=== PATIENT | male | born 1950 | race Caucasian/White ===

== ENCOUNTER → 2020-03-29 11:11 | Outpatient (CLI) | payer MEDICARE, SELFPAY ==
--- NOTE | ~2020-03-29 | XR_ITS ---
EXAMINATION: XR hip RT min 2V DATE: 03/29/2020 12:07 INDICATION: Right hip pain TECHNIQUE: Two views of right hip were obtained. COMPARISON: None. FINDINGS: Bone alignment is normal. There is no fracture. There are partially imaged surgical changes of the lumbosacral spine. IMPRESSION: 1. No acute osseous abnormality. Reviewed, dictated and finalized at location A.
== END ==
PROVIDERS: PCP Family Medicine; Visit Provider Family Medicine
DX: M25.551 Pain in right hip (principal)
CPT/HCPCS: 73502

== ENCOUNTER 2020-07-03 12:00 | Inpatient (IN) | payer MEDICARE, SELFPAY ==
[2020-07-03] VITALS (36 sets, daily range): BP systolic 114–153; BP diastolic 63–75; PULSE 62–100; RESP 14–31; TEMP 36.3–37.2; O2SAT 70–97; BMI 25.4
--- NOTE | ~2020-07-03 | CT_ITS ---
EXAMINATION: CTA chest PE protocol EXAM DATE: 07/03/2020 14:45 INDICATION: Shortness of air. TECHNIQUE: Spiral CTA of the chest (pulmonary arteries) was performed with 100 cc Omnipaque 350 intr avenous contrast injection. Images were acquired during the pulmonary arterial phase. Coronal maxi mum intensity projection 3D-reconstructions were created by the technologist on dedicated workstation . Axial, coronal and sagittal reformatted images were reviewed. The dose-length product (DLP) for t his examination was 363.41 mGy-cm. The exposure was tailored according to patient size (auto mA exp osure control), and iterative reconstruction (ASIR) was used as additional dose reduction technique. Correlation is made to pulmonary CT 2005. FINDINGS: Scattered bilateral interlobar and segmental pulmonary emboli, moderate clot burden. No t horacic aortic dissection. There is moderate to severe amount of peripheral predominant groundglass airspace disease with some smaller regions of atelectasis, appearance consistent with COVID pneumonia . There are no pleural or pericardial effusions. Tracheobronchial tree is patent. There is no me diastinal, hilar or axillary lymphadenopathy. There is no pneumothorax. Heart normal in size. T here is moderate coronary arterial calcification, arterial sclerosis. Upper abdomen is unremarkable. There is thoracic spondylosis without osteoblastic or osteolytic lesions identified. IMPRESSION: 1. Multiple interlobar and segmental pulmonary emboli bilaterally, moderate clot burden. Evidence of mild right heart strain. 2. Moderate to severe COVID pneumonia. I discussed pulmonary emboli, COVID pneumonia with Dr. Holden Landis MD at 07/03/2020 15:01 HAM PASSER . Reviewed, dictated and finalized at location A. PASSER IMPRESSION: 1. Multiple interlobar and segmental pulmonary emboli bilaterally, moderate cl ot burden. Evidence of mild right heart strain. 2. Moderate to severe COVID pneumonia. I discussed pulmonary emboli, COVID pneumonia with Dr. Holden Landis MD at 07/03/2020 15:01 HAM PASSER.
--- NOTE | ~2020-07-03 | US_ITS ---
EXAMINATION: US venous doppler [facility] DATE: 07/04/2020 09:22 INDICATION: Pulmonary embolism TECHNIQUE: Grayscale ultrasound images without and with compression and Doppler ultrasound images of the bilateral lower extremity veins were obtained. COMPARISON: None. FINDINGS: The visualized portions of right common femoral vein, profunda (deep) femoral vein, femoral vein, pop liteal vein, posterior tibial veins, peroneal veins, gastrocnemius vein and greater saphenous vein ou tflow are patent. The visualized portions of left common femoral vein, profunda femoral vein, femoral vein, popliteal v ein, posterior tibial veins, peroneal veins, gastrocnemius vein and greater saphenous vein outflow ar e patent. IMPRESSION: 1. No deep venous thrombosis in either lower limb. Reviewed, dictated and finalized at location A. [employer]
--- NOTE | ~2020-07-03 | XR_ITS ---
XR chest 1V portable DATE: 07/10/2020 21:11 INDICATION: Respiratory failure TECHNIQUE: Portable AP chest on 07/10/2020 2109 hours COMPARISON: 07/07/2020 portable AP chest 07/03/2020 CT pulmonary scan 07/03/2020 portable AP chest 02/21/2016 2 view chest FINDINGS: Diffuse bilateral pulmonary infiltrates relatively sparing the apices are again noted, with little interval change since 07/07/2020. Heart size appears within normal range. Is aortic atherosclerotic calcification. No pleural effusion. No pneumothorax. Status post anterior lower cervical spine surgical fusion. Diffuse osteopenia. IMPRESSION: No significant change since 07/07/2020 Reviewed, dictated and finalized at location A. TH PROGRAM MANAGER
--- NOTE | ~2020-07-03 | XR_ITS ---
EXAMINATION: XR chest ET placement, XR abdomen NG/feed tube insert DATE: 07/12/2020 16:26 INDICATION: Endotracheal tube placement. Orogastric tube placement. TECHNIQUE: 1. AP view of the chest was obtained. 2. AP upright view of the upper abdomen was obtained. COMPARISON: Chest radiograph dated 07/10/[address] dated 07/03/2020 FINDINGS: Chest: Endotracheal tube tip 5.0 cm above the jumana. Left upper extremity peripherally inserted central kenn ous catheter (PICC) tip at the superior cavoatrial junction. Suture line at the right apex suggesting prior partial pulmonary wedge resection. Couple surgical cli ps project over the right midlung zone. Diffuse groundglass opacities and increased reticular pattern throughout both lungs with appearance on prior CT suggesting COVID pneumonia. No pleural effusion or pneumothorax. Cardiomediastinal silhouette is normal. Plate and screw fixation for anterior spinal f usion at C6-C7. Abdomen: Nasogastric tube tip in proximal side port in the body of the stomach. No dilated loops of gas-filled bowel in the visualized upper abdomen. Partially visualized vertical mani and pedicle screws and inte rbody bone graft cages for combined is submitted anterior and posterior spinal fusion beginning at L2 and extending caudally beyond the inferior margin of the [id number]. IMPRESSION: 1. Endotracheal tube, orogastric tube and left PICC line all in expected positions. 2. Diffuse bilateral lung disease with appearance on CT most suspicious for COVID pneumonia. Differen tial includes pulmonary edema. Reviewed, dictated and finalized at location B. ER JOINER IMPRESSION: 1. Endotracheal tube, orogastric tube and left PICC line all in expected positi ons. 2. Diffuse bilateral lung disease with appearance on CT most suspicious for COV ID pneumonia. Differential includes pulmonary edema.
--- NOTE | ~2020-07-03 | XR_ITS ---
EXAMINATION: XR abdomen/kub 1V INDICATION: Abdominal distention TECHNIQUE: Supine views of the abdomen were obtained on 2 radiographs. COMPARISON: None FINDINGS: There are no dilated loops of bowel. No free intraperitoneal gas is identified. There are c hanges of lumbar fusion with fracture of the stabilization rods on the right at L3-4 and on the left at L4-5. Opacities of the visualized lung bases are consistent with COVID 19 pneumonia. IMPRESSION: 1. Normal bowel gas pattern. 2. Spinal fusion hardware failure. Reviewed, dictated and finalized at location A. LE POINTED OPERATOR
--- NOTE | ~2020-07-03 | XR_ITS ---
EXAMINATION: XR chest 1V portable EXAM DATE: 07/14/2020 06:29 INDICATION: Acute respiratory failure, COVID-19 pneumonia. TECHNIQUE: Portable AP frontal chest x-ray was obtained. Comparison is made to prior examination from 07/13, 07/12. FINDINGS: Endotracheal tube tip is 6 centimeters above the jumana. Feeding tube tip identified, like ly tip projecting over gastric bubble. There is a left-sided PICC line with tip projecting over the c avoatrial junction. Skin folds overlying the lung apices likely accounting for the density difference. There is moderate amount of ill-defined bilateral airspace disease, appears to have peripheral predominant. There are no sizable pleural effusions. There is no pneumothorax suspected. Mild cardiomegaly. Cervical fu andrew hardware. There is aortic arteriosclerosis. There are bony degenerative changes. There is no significant interval change compared to prior exam. IMPRESSION: 1. Line and tube(s) in position. 2. Moderate amount of bilateral airspace disease, distribution consistent with COVID pneumonia. Reviewed, dictated and finalized at location A. AP WORKER
--- NOTE | ~2020-07-03 | XR_ITS ---
EXAMINATION: XR chest 1V portable EXAM DATE: 07/13/2020 06:26 INDICATION: Acute respiratory failure, COVID-19 pneumonia. TECHNIQUE: Portable AP frontal chest x-ray was obtained. Comparison is made to prior examination from 07/10/2020. FINDINGS: Endotracheal tube tip is 5-6 centimeters above the jumana. Feeding tube tip identified, [place] in the gastric body. There is a left-sided PICC line with tip projecting over the cavoatrial carlos ction. There is moderate amount of ill-defined bilateral airspace disease, appears to have peripheral predom inant. There are no sizable pleural effusions. There is no pneumothorax suspected. Mild cardiome fan. Cervical fusion hardware. There is aortic arteriosclerosis. There are bony degenerative booker es. There is no significant interval change compared to prior exam. IMPRESSION: 1. Line and tube(s) in position. 2. Moderate amount of bilateral airspace disease, distribution consistent with COVID pneumonia. Reviewed, dictated and finalized at location A. NCIAL MANAGER
--- NOTE | ~2020-07-03 | XR_ITS ---
EXAMINATION: XR chest 1V portable DATE: 07/15/2020 08:01 INDICATION: Acute respiratory failure. COVID 19 pneumonia. TECHNIQUE: frontal view of the chest was obtained. COMPARISON: Chest radiograph dated 07/14/2020 FINDINGS: Endotracheal tube tip 7.3 cm above the jumana. Nasogastric tube tip in the stomach. Bilateral coarse reticular and patchy groundglass opacities with peripheral and lower lung predominan ce. There is been some improvement in aeration at the lung bases. No pleural effusion or pneumothorax . The cardiomediastinal silhouette is normal. Plate and screw fixation for lower cervical anterior sp inal fusion. IMPRESSION: 1. Diffuse bilateral lung disease consistent with provided history of COPD pneumonia with improved ae ration at the lung bases. 2. Endotracheal tube tip 7.3 cm above the jumana. Consider advancement by 4-5 cm. Reviewed, dictated and finalized at location A. M TURBINE ASSEMBLER IMPRESSION: 1. Diffuse bilateral lung disease consistent with provided history of COPD pneu monia with improved aeration at the lung bases. 2. Endotracheal tube tip 7.3 cm above the jumana. Consider advancement by 4-5 c m.
--- NOTE | ~2020-07-03 | XR_ITS ---
EXAMINATION: XR chest 1V portable DATE: 07/07/2020 14:17 INDICATION: COVID-19 pneumonia. TECHNIQUE: A single frontal view of the chest was obtained. COMPARISON: Chest single view 07/03/2020, chest CT 07/03/2020 FINDINGS: There are patchy airspace opacities associated with interstitial opacities involving all yanet ng zones bilaterally with a peripheral predominance and relative sparing of the lung apices. No pleur al effusion or pneumothorax. The heart size is normal. There are changes of anterior fusion procedure in cervical spine. Surgical clips overlie right chest. IMPRESSION: 1. Stable diffuse lung disease, consistent with COVID-19 pneumonia. Reviewed, dictated and finalized at location B. GER UROLOGY
--- NOTE | ~2020-07-03 | XR_ITS ---
EXAMINATION: XR chest 1V portable DATE: 07/16/2020 06:15 INDICATION: COVID 19 pneumonia. Acute respiratory failure. TECHNIQUE: frontal view of the chest was obtained. COMPARISON: Chest radiograph dated 07/15/2020 FINDINGS: Endotracheal tube tip 6.6 cm above the jumana. Nasogastric tube extends below the left hemidiaphragm with distal tip collimated off the study. No interval change in bilateral coarse reticular and patchy airspace opacities. No pneumothorax or pl eural effusion. The cardiomediastinal silhouette is normal. Partially visualized plate and screw fixa tion for lower cervical anterior spinal fusion. IMPRESSION: 1. No significant change in diffuse bilateral lung disease consistent which could represent COVID pne umonia, ARDS, pulmonary edema or some combination thereof. 2. Endotracheal tube tip 6.5 cm above the jumana. Consider advancement by 4 cm. Reviewed, dictated and finalized at location A. SOLDERING MACHINE TENDER IMPRESSION: 1. No significant change in diffuse bilateral lung disease consistent which cou ld represent COVID pneumonia, ARDS, pulmonary edema or some combination thereof . 2. Endotracheal tube tip 6.5 cm above the jumana. Consider advancement by 4 cm.
--- NOTE | ~2020-07-03 | XR_ITS ---
EXAMINATION: XR chest 1V portable DATE: 07/03/2020 13:03 INDICATION: Shortness of breath. TECHNIQUE: A single frontal view of the chest was obtained. COMPARISON: Chest 2 views 02/21/2016, chest CT 03/17/2007 FINDINGS: There are airspace opacities in all lung zones with a peripheral process. No pleural effusi on or pneumothorax. There is normal. There are changes of anterior fusion procedure in cervical spine . Surgical clips overlie right chest. IMPRESSION: 1. Diffuse lung disease, consistent with pneumonia. Reviewed, dictated and finalized at location B. [facility]
--- NOTE | 2020-07-03 12:18 | ECG_ITS ---
Measurements Intervals [place] Rate: 79 P: 43 HI: 133 QRS: 37 QRSD: 102 T: 9 QT: 391 QTc: 449 Interpretive Statements SINUS RHYTHM EARLY PRECORDIAL R/S TRANSITION BORDERLINE ST-T WAVE ABNORMALITY- ANTEROLAT/INF LEADS BORDERLINE ECG Electronically Signed On 07-03-2020 12:51:12 FILTER WASHER AND PRESSER by Derick Porras D.O.
--- NOTE | 2020-07-03 12:35 | PC.NURSE ---
patient resting on stretcher. MD aware of initial O2 sats. now on high flow O2 at 9LNC. sats slowly up to 94%. patient reminded to take deep breaths thru his nose. on photonics technician. 2nd SL inserted and labs drawn. attempting to get HPI information from patient but patient is a poor historian. provider in room.
[2020-07-03 12:37] LABS: Basophils Percent Auto 0.2 % (0.2-1.2); Eosinophils Percent Auto 0.2 % (0-4.4); Hematocrit 43.4 % (42.0-52.0); Hemoglobin 14.3 g/dL (14.0-18.0); Immature Granulocyte Absolute 0.36 K/mm3 (0.00-0.031); Immature Granulocyte Percent A 2.7 % (0-0.5); Lymphocytes Absolute Auto 1.13 K/mm3 (0.9-3.2); Lymphocytes Percent Auto 8.5 % (18.3-44.2); Mean Corpuscular HGB Conc 32.9 g/dl (32-36); Mean Corpuscular Hemoglobin 28.9 pg (26-34); Mean Corpuscular Volume 87.7 fl (80-100); Mean Platelet Volume 10.6 fl (7.4-10.4); Monocytes Absolute Auto 0.8 K/mm3 (0.1-0.6); Monocytes Percent Auto 6.1 % (2.6-8.5); Neutrophils Percent Auto 82.3 % (45.5-73.1); Nucleated Red Blood Cells Perc 0.1 % (0.0-0.2); Platelet Count Result 240 k/mm3 (150-375); Red Blood Count 4.95 M/mm3 (4.6-6.20); White Blood Count 13.4 K/mm3 (4.5-10.0)
[2020-07-03 12:50] LABS: Base Excess ABG -0.8 mEq/l (+/-2.0); Carboxyhemoglobin 0.9 % THb (0-2.0); Fractional Inspired Oxygen 56 %; HCO3 ABG 22.4 mEq/l (22.0-26.0); Methemoglobin ABG 0.2 %THb (0-1.5); Oxygen Saturation ABG 91.8 % (95.0-100.0); Oxyhemoglobin 88.8 % THb (90.0-100.0); PO2 ABG 58.7 mmHg (80.0-100.0); PO2 FiO2 Ratio Arterial Blood 1.05 %; Reduced Hemoglobin 10.1 %THb (0-5.0); Total Hemoglobin 14.4 g/dL (12.0-18.0); pH ABG 7.449 (7.350-7.450)
[2020-07-03 12:52] LABS: Site Drawn LEFT BRACHIAL
[2020-07-03 12:52] LABS: Alanine Aminotransferase 27 U/L (4-50); Albumin Level 3.9 g/dL (3.5-5.1); Alkaline Phosphatase 84 U/L (38-126); Anion Gap 10 mmol/L (8-16); Aspartate Amino Transferase 30 U/L (17-59); Bilirubin,Total 1.6 mg/dL (0.2-1.3); Blood Urea Nitrogen 27 mg/dL (9-20); Calcium 9.1 mg/dL (8.4-10.2); Carbon Dioxide 28 mmol/L (22-30); Chloride 100 mmol/L (98-107); Estimated CRCL calculation 87 ml/min; Estimated Glomerular Filt Rate > 60; Glucose 304 mg/dL (75-110); Potassium 4.2 mmol/L (3.4-5.0); Sodium 138 mmol/L (137-145)
[2020-07-03 12:53] LABS: Device HIGH FLOW NASAL CANN
[2020-07-03 13:04] LABS: CRP 20.7 mg/dL (<1.0)
[2020-07-03 13:32] LABS: D Dimer > 20.00 ug/mL (<0.48)
--- NOTE | 2020-07-03 13:43 | ED.SOB ---
HPI - SOB/Dyspnea General Chief Complaint: Shortness of Breath/Dyspnea Stated Complaint: COVID +, SOB Time Seen by Provider: 07/03/20 12:04 History of Present Illness HPI Narrative: Patient is a 69-year-old male who presents ER with shortness of breath. Recently diagnosed with COVID-19 but patient is unsure of the date he was diagnosed. It may have been on the but it may have also been 17 days ago. Reports his is also positive. Reports he has had persistent shortness of breath that is worse with exertion. He is also been having mild fevers and chills as well as cough. Unsure how a contracted illness. He is oriented x3 but is a poor historian regarding the details of his illness. Related Data Home Medications Medication Instructions Recorded Confirmed cholecalciferol (vitamin D3) 125 125 mcg PO DAILY 03/29/20 mcg (5,000 unit) capsule mecobalamin (vitamin B12) 1,000 1,000 mcg PO DAILY 03/29/20 mcg chewable tablet tamsulosin 0.4 mg capsule 0.4 mg PO DAILY 03/29/20 aspirin 81 mg DAILY 07/03/20 atorvastatin 20 mg DAILY 07/03/20 cholecalciferol (vitamin D3) 07/03/20 cyanocobalamin (vitamin B-12) mcg 07/03/20 dapagliflozin [Farxiga] 10 mg DAILY 07/03/20 07/03/20 latanoprost drp 07/03/20 lisinopril 5 mg DAILY 07/03/20 07/03/20 metformin 1,000 mg BID 07/03/20 methylprednisolone mg 07/03/20 sertraline 100 mg DAILY 07/03/20 Allergies Allergy/AdvReac Type Severity Reaction Status Date / Time atorvastatin Allergy Unknown Muscle Pain Verified 07/03/20 13:14 ezetimibe Allergy Unknown Muscle Pain Verified 07/03/20 13:14 Review of Systems Review of Systems: All systems reviewed & are unremarkable except as noted in HPI and below Constitutional: Constitutional: Reports chills, Reports fever(s) and Reports weakness ENT: Denies nasal congestion and Denies sore throat Cardiovascular: Cardiovascular: Denies chest pain and Denies radiating jaw, neck or arm pain Respiratory: Respiratory: Reports cough, Reports dyspnea and Denies wheezing Gastrointestinal: Gastrointestinal: Denies abdominal pain, Denies nausea and Denies vomiting Neurologic: Denies focal weakness and Denies numbness PMFSH Past Medical History Medical History (Updated 07/03/20 @ 15:35 by Holden Landis MD) BPH loc w urin obs/LUTS Chronic low back pain Coronary artery disease involving [place] coronary artery of [place] heart History of [place] (myocardial infarction) HLD (hyperlipidemia) Hypertensive heart disease without congestive heart failure Primary open angle glaucoma of both eyes PVD (peripheral vascular disease) Type 2 diabetes mellitus without complications Surgical History Surgical History (Updated 03/29/20 @ 10:57 by Bucky Hua MD) History of PTCA S/P lumbar fusion Family History Family History (System 10/20/19 @ 08:47 by Tania Greenfield) Mother Family history of lung cancer Family history of coronary artery disease, Onset Age: 65 Hypertension Patient's mother is Grandparent Diabetes mellitus Sibling Family history of malignant neoplasm Patient's sister is Patient's sister is in good health Patient's brother is in good health Father Patient's father is Social History Social History (Updated 03/29/20 @ 10:36 by Swati Glass) Smoking packs per day: 2 Smoking cigarettes per day: 40.0 Years smoked: 25 Smoking pack-years: 50.00 Smoking status: Former smoker Tobacco type: cigarettes Second hand tobacco smoke exposure: Yes Smoking end date: 06/16/87 Alcohol intake: current Substance use: never Substance use type: does not use Gender identity (if verbalized by the patient): Male Exam Narrative: Exam Narrative: GENERAL: Well-appearing, well-nourished, and in no acute distress. HEAD: Normocephalic, atraumatic. EYES: PERRL and EOMI. CHEST: Clear to auscultation. No respiratory distress. HEART: Regular ra
--- NOTE | 2020-07-03 13:50 | PC.NURSE ---
spoke with patient's who states he was (+) for Covid on 06/19/20. patient also resting in bed now with O2 sat in the 70's. this RN to his room. patient has oxygen off, mask off, took leads off. turned on his side all covered up to sleep. all reapplied to patient. patient advised again to leave O2 on and leave monitors aware.
--- NOTE | 2020-07-03 14:30 | PC.NURSE ---
resting on stretcher. continues to be on 9L via high-flow NC O2. patient removes O2 at times. RA sat 68%. have to remind patient of O2 and monitors. call light in reach.
[2020-07-03] MEDS: HEPARIN SODIUM 5,000 UNITS/ML VIAL 7000 UNITS IV PUSH (15:14)
[2020-07-03] MEDS: HEPARIN SOD/D5W 100 UNITS/ML 25,000 UNITS/250 ML BAG 15 UNITS IV CONT (15:16)
--- NOTE | 2020-07-03 15:21 | PC.NURSE ---
resting on stretcher. heparin bolus given.heparin gtt started. waiting for bed assignment upstairs. patient updated. urinal at bedside. has ice water. has call light in reach.
[2020-07-03] MEDS: DEXAMETHASONE SOD PHOS INJ 4 MG/ML VIAL 6 MG IV PUSH (15:55)
--- NOTE | 2020-07-03 16:05 | PC.NURSE ---
decadron given as ordered. patient asked for diet pepsi. returned to room to find patient out of bed at end of stretcher with increased dyspnea. has pulse oximeter off. asked patient several times if he wanted help to use urinal but denied. patient assisted back to bed. monitors back on. drink given. side rails up x 2. call light in reach. patient advised again not to get out of bed alone.
--- NOTE | 2020-07-03 16:23 | PC.NURSE ---
patient continues to intermittently remove his O2 and monitors. placed on scalp pulse oximeter. discussed with provider. patient has long recovery time if O2 has been removed. will try NRB. patient appears confused at time and not understanding the significance of his diagnosis and current condition.
--- NOTE | 2020-07-03 16:35 | PC.NURSE ---
spoke with patient's Jennyfer on the phone. updated on patient's diagnosis and plan to admit.
--- NOTE | 2020-07-03 16:51 | PC.NURSE ---
respiratory in room. patient placed on bipap. waiting for bed assignment upstairs for transfer.
--- NOTE | 2020-07-03 17:07 | PC.NURSE ---
SBAR completed. faxed and tubed to IMU.
--- NOTE | 2020-07-03 17:08 | PC.NURSE ---
per respiratory, patient ok to go to IMU on NRB mask.
--- NOTE | 2020-07-03 17:35 | PC.NURSE ---
report given to RN in IMU. will get patient ready to transfer to [facility].
--- NOTE | 2020-07-03 17:44 | PC.NURSE ---
Cat RN taken patient to 209 on NRB per respiratory.
--- NOTE | 2020-07-03 19:58 | ADMGEN ---
This patient, Russell Green, was admitted to IMU Room 209-01. Patient/family oriented to hospital policies and general routines including ID bracelet, bed and alarms, visiting hours, pain management, procedures, bathroom and other care routines, personal items, smoking policy, room service/diet, and visiting hours. Information on how to activate the Rapid Response Team has been discussed. Patient/Family are encouraged to report perceived risks to care and to ask questions if they do not understand what they are told or what they should do.
[2020-07-03 20:45] LABS: Alveolar/Arterial O2 Gradient 383.8 mmHg; Base Excess ABG 0.3 mEq/l (+/-2.0); Carboxyhemoglobin 0.3 % THb (0-2.0); Fractional Inspired Oxygen 70 %; HCO3 ABG 23.9 mEq/l (22.0-26.0); Methemoglobin ABG 0.3 %THb (0-1.5); Oxygen Content ABG 18.9 %vol (16.0-22.0); Oxygen Saturation ABG 95.9 % (95.0-100.0); Oxyhemoglobin 93.9 % THb (90.0-100.0); PCO2 ABG 35.9 mmHg (35.0-45.0); PO2 ABG 76.7 mmHg (80.0-100.0); Reduced Hemoglobin 5.5 %THb (0-5.0); Total Hemoglobin 14.3 g/dL (12.0-18.0); pH ABG 7.442 (7.350-7.450)
[2020-07-03 20:46] LABS: Device NON-INVASIVE VENT; Modified Allen's Test Pass; Non-Invasive Vent Rate 4 /MIN; Site Drawn LEFT RADIAL
[2020-07-03 20:48] LABS: Non-Invasive Expiratory Pressure 6 CMH2O; Non-Invasive Inspiratory Pressure 14 CMH2O
--- NOTE | 2020-07-03 22:22 | PM.IMHP ---
H&P: HPI History of Present Illness Date/Time: 07/03/20 22:22 Chief Complaint: Shortness of breath and anxiety Narrative: Russell Green is a 69 year old male has been tested positive for COVID-19. The patient was unsure of the date initially. However the patient stated he thought it was about 17 days ago or so. However other family members are now out of quarantine. The patient has persistent shortness of breath and is worth with exertion. The patient was confused when he came in. The patient is a very poor historian regarding any details of his care. He was able to tell me about his social history though. He is able to give me the date of and wary is in that he had 2 children and a . Chest CT a was read as multiple interlobular and segmental pulmonary emboli bilaterally. Moderate clot burden. Evidence of mild right heart strain. Moderate to severe is COVID pneumonia. The patient was started on a heparin drip. The patient was restless and pulling off his oxygen initially. I suggested a BiPAP machine he still in a BiPAP and appears to be tolerating it fairly well. Chest x-ray was read as diffuse lung disease consistent with pneumonia. He appears to be outside the window for treatment. But he was given because we were sure the window or time frame of his positive test. Was done an outside facility. The patient was placed on isolation. Neutrophils 82.3. D-dimer was greater than 20. Patient's initial ABGs 7.449 was pH and then was 7.442. CO2 was 33 and then 35. PO2 was 58.7 than 76.7. C reactive protein 20.7. Patient is being admitted to inpatient services on the date of service of 07/03/2020. Review of Systems Review of Systems: All systems reviewed & are unremarkable except as noted in HPI and below Constitutional: Constitutional: Reports as per HPI and Reports no additional constitutional complaints Eyes: Eyes: Reports as per HPI and Reports no additional eye complaints ENT: Reports system reviewed and no additional complaints, except as documented and Reports Normal hearing present Cardiovascular: Cardiovascular: Reports no additional cardiovascular complaints Respiratory: Respiratory: Reports no additional respiratory complaints and Reports no additional respiratory complaints Gastrointestinal: Gastrointestinal: Reports as per HPI and Reports no additional gastrointestinal complaints Musculoskeletal: Musculoskeletal: Reports no additional musculoskeletal complaints Integumentary/Breasts: Skin/Breast: Reports system reviewed and no additional complaints, except as docu and Reports as per HPI Neurologic: Reports system reviewed and no additional complaints, except as documented, Reports as per HPI and Reports Normal hearing present Psychiatric: Psychiatric: Reports no additional psychiatric complaints and Reports as per HPI Endocrine: Endocrine: Reports no additional endocrine complaints Hematologic/Lymphatic: Hematologic/Lymphatic: Reports no additional hematologic/lymphatic complaints Allergic/Immunologic: Allergic/Immunologic: Reports no additional allergic/immunologic complaints [facility] Past Medical History Medical History (Updated 07/03/20 @ 22:52 by Brianne Santos NP) Anxiety BPH (benign prostatic hyperplasia) BPH loc w urin obs/LUTS Chronic low back pain Congestive heart failure Diastolic Coronary artery disease involving [place] coronary artery of [place] heart Glaucoma History of [place] (myocardial infarction) HLD (hyperlipidemia) Hypertensive heart disease without congestive heart failure Primary open angle glaucoma of both eyes PVD (peripheral vascular disease) Type 2 diabetes mellitus without complications Surgical History Surgical History (Updated 07/03/20 @ 22:30 by Brianne Santos NP) H/O heart artery stent X7 History of carpal tunnel release History of lung surgery History of PTCA History of shoulder surgery Arthroscopic S/P lumbar fusion Family History Family History (
[2020-07-03 23:23] LABS: Hemoglobin A1C 7.5 % (<5.7)
[2020-07-03 23:47] LABS: Glucose Point of Care 310 (65-105)
[2020-07-04] VITALS (24 sets, daily range): BP systolic 115–118; BP diastolic 61–67; PULSE 54–77; RESP 16–32; TEMP 36.2–36.6; O2SAT 89–100
--- NOTE | 2020-07-04 | ECHO_ITS ---
Patient Info Name: Russell Green Age: 69 years : 1950 Gender: Male Ht: 74 in Wt: 197 lbs BSA: 2.17 m2 HR: 67 bpm BP: 118 / 61 mmHg Technical Quality: Good, Fair Exam Date: 07/04/2020 9:56 AM Exam Location: [facility] Pulmonary Patient Status: Inpatient Admit Date: 07/03/2020 Staff Ordering Physician: Brianne Santos NP Food Sales Clerk: Lai Castro RDCS, RT Attending Provider: Lydia Calix PA-C Referring Physician: Tom CLIFTON; Exam Type: CA echo doppler color flow Study Info Indications I26.99 - Other pulmonary embolism without acute cor pulmonale Complete two-dimensional, color flow and Doppler transthoracic echocardiogram is performed. Summary 1. Complete two-dimensional, color flow and Doppler transthoracic echocardiogram is performed. 2. Left ventricular chamber dimension is normal. 3. Left ventricular systolic function is normal, estimated at 60-65%. 4. There is mildly increased left ventricular wall thickness. 5. The left ventricular diastolic function is grade I diastolic dysfunction. 6. E/e' 6 is not elevated. 7. There is mild aortic valve regurgitation. 8. There is trace pulmonic regurgitation. Left Ventricle E/e' 6 is not elevated. Left ventricular chamber dimension is normal. Left ventricular systolic function is normal, estimated at 60-65%. There is mildly increased left ventricular wall thickness. The left ventricular diastolic function is grade I diastolic dysfunction. Right Ventricle Right ventricular systolic function is normal based on TAPSE 2.7 cm. Right ventricular chamber dimension is not well visualized. Left Atria Left atrial chamber dimension is normal. Right Atria Right atrial chamber dimension is normal. Aortic Valve The aortic valve is trileaflet. There is no aortic valve stenosis. There is mild aortic valve regurgitation. Pulmonic Valve There is trace pulmonic regurgitation. Mitral Valve There is no mitral valve stenosis. There is no mitral valve regurgitation. Tricuspid Valve There is no tricuspid valve regurgitation. Pericardium/Pleural There is no pericardial effusion. Inferior Vena Cava Normal inferior vena cava with >50% collapse upon inspiration consistent with normal right atrial pressure, 5 mmHg. Aorta The aortic root size at the sinus of Valsalva is normal. Left Ventricular Outflow Tract Name Value Normal LVOT 2D LVOT Diameter 2.0 cm LVOT Doppler LVOT Peak Gradient 3 mmHg LVOT Mean Gradient 2 mmHg LVOT VTI 18 cm LVOT VTI/AV VTI Ratio 0.8 LVOT Stroke Volume 57 ml LVOT CO 4.1 l/min LVOT CI 1.9 l/min/m2 Mitral Valve Name Value Normal MV Doppler MV D
[2020-07-04 00:35] LABS: Partial Thromboplastin Time 32.6 SECONDS (22.3-36.8)
[2020-07-04] MEDS: HEPARIN SODIUM 5,000 UNITS/ML VIAL 7000 UNITS IV PUSH (01:42)
[2020-07-04] MEDS: INSULIN ASPART (*BKC) 100 UNITS/ML SUB-Q ×5 (01:43→23:45)
[2020-07-04 01:45] LABS: Glucose Point of Care 303 (65-105)
[2020-07-04] MEDS: ALBUTEROL SULFATE NEB 2.5 MG/0.5 ML INH 5 MG INHALATION ×4 (02:00→19:35)
[2020-07-04 05:07] LABS: Basophils Percent Auto 0.3 % (0.2-1.2); Hematocrit 41.2 % (42.0-52.0); Hemoglobin 13.6 g/dL (14.0-18.0); Immature Granulocyte Percent A 2.9 % (0-0.5); Lymphocytes Absolute Auto 0.65 K/mm3 (0.9-3.2); Lymphocytes Percent Auto 6.3 % (18.3-44.2); Mean Corpuscular Hemoglobin 28.8 pg (26-34); Mean Corpuscular Volume 87.3 fl (80-100); Mean Platelet Volume 11.4 fl (7.4-10.4); Monocytes Absolute Auto 0.7 K/mm3 (0.1-0.6); Monocytes Percent Auto 7.1 % (2.6-8.5); Neutrophils Absolute Auto 8.5 K/mm3 (1.3-6.7); Neutrophils Percent Auto 83.4 % (45.5-73.1); Platelet Count Result 230 k/mm3 (150-375); Red Blood Count 4.72 M/mm3 (4.6-6.20); Red Cell Distribution Width 13.9 % (11.5-14.5); White Blood Count 10.2 K/mm3 (4.5-10.0)
[2020-07-04 05:23] LABS: Alanine Aminotransferase 26 U/L (4-50); Albumin Level 3.5 g/dL (3.5-5.1); Alkaline Phosphatase 83 U/L (38-126); Anion Gap 10 mmol/L (8-16); Aspartate Amino Transferase 24 U/L (17-59); Blood Urea Nitrogen 27 mg/dL (9-20); Calcium 9.2 mg/dL (8.4-10.2); Carbon Dioxide 27 mmol/L (22-30); Chloride 103 mmol/L (98-107); Estimated CRCL calculation 76 ml/min; Estimated Glomerular Filt Rate > 60; Glucose 334 mg/dL (75-110); Magnesium 2.3 mg/dL (1.6-2.3); Potassium 4.2 mmol/L (3.4-5.0); Sodium 140 mmol/L (137-145)
[2020-07-04 05:36] LABS: CRP 20.3 mg/dL (<1.0)
[2020-07-04 05:44] LABS: Partial Thromboplastin Time > 200.0 SECONDS (22.3-36.8)
[2020-07-04 06:19] LABS: Thyroid Stimulating Hormone Reflex 0.748 uIU/mL (0.465-4.68)
[2020-07-04] MEDS: lisinopriL 5 MG TABLET BY MOUTH (07:47)
[2020-07-04] MEDS: ATORVASTATIN 20 MG TABLET BY MOUTH (07:47)
[2020-07-04] MEDS: CYANOCOBALAMIN 1,000 MCG TABLET 1000 MCG PO (07:47)
[2020-07-04] MEDS: SERTRALINE HCL 50 MG TABLET 100 MG BY MOUTH (07:47)
[2020-07-04] MEDS: TAMSULOSIN HCL 0.4 MG CAPSULE PO (07:47)
[2020-07-04] MEDS: LATANOPROST 0.005% OP SOLN 2.5 ML BTL 1 DROP EACH EYE (07:48)
--- NOTE | 2020-07-04 07:59 | PHAR ---
Home medication identified by markings with nurse on IMU unit. Farxiga 10mg tablet
[2020-07-04] MEDS: DEXAMETHASONE SOD PHOS INJ 4 MG/ML VIAL 6 MG IV PUSH (11:37)
[2020-07-04 14:51] LABS: Partial Thromboplastin Time 85.8 SECONDS (22.3-36.8)
[2020-07-04 16:14] LABS: Glucose Point of Care 249 (65-105)
[2020-07-04] MEDS: HEPARIN SOD/D5W 100 UNITS/ML 25,000 UNITS/250 ML BAG 16 UNITS IV CONT (16:53)
--- NOTE | 2020-07-04 17:40 | PM.IMPN ---
Progress Note: A&P Assessment and Plan (1) Pneumonia due to COVID-19 virus: Code(s): U07.1 - COVID-19; J12.82 - Pneumonia due to coronavirus disease 2019 Status: Acute Assessment and Plan: Patient presented after being found to be COVID positive at home. He had worsening shortness of breath and fatigue and decided to come for further evaluation. He has been placed on Decadron and was on BiPAP overnight due to hypoxia. He is out of the window for Remdesivir. This morning he was able to be taken off BiPAP and placed on high-flow nasal cannula where he is right now. Continue monitoring. (2) Pulmonary embolism: Code(s): I26.99 - Other pulmonary embolism without acute cor pulmonale Status: Acute Assessment and Plan: Post COVID. Venous Dopplers negative for DVT. Echo is pending. Continue with heparin protocol. Plan for Eliquis p.o. (3) Congestive heart failure: Code(s): I50.9 - Heart failure, unspecified Status: Chronic Assessment and Plan: Diastolic dysfunction. It looks like the patient is just on lisinopril. No Lasix. Appears to be euvolemic at this time. (4) HLD (hyperlipidemia): Code(s): E78.5 - Hyperlipidemia, unspecified Status: Acute Assessment and Plan: Will hold statin at this time. (5) Type 2 diabetes mellitus without complications: Code(s): E11.9 - Type 2 diabetes mellitus without complications Status: Acute Assessment and Plan: Accu-Cheks AC and HS. I am holding his metformin. A1c pending. His farxiga is non formulary. He will be on Decadron at this time. We need them do Accu-Cheks AC and HS. (6) Hypertensive heart disease without congestive heart failure: Code(s): I11.9 - Hypertensive heart disease without heart failure Status: Acute Assessment and Plan: Denies any chest pain. Continue with lisinopril. (7) Anxiety: Code(s): F41.9 - Anxiety disorder, unspecified Status: Chronic Assessment and Plan: Continue with sertraline (8) BPH (benign prostatic hyperplasia): Code(s): N40.0 - Benign prostatic hyperplasia without lower urinary tract symptoms Status: Chronic Assessment and Plan: Continue with Flomax (9) Glaucoma: Code(s): H40.9 - Unspecified glaucoma Status: Chronic Assessment and Plan: Continue with his eyedrops. Time Spent With Patient Time with patient: 25 - 35 minutes Subjective Date/time seen: 07/04/20 17:40 Interval history: Date of service 07/04/2020: Patient states he is feeling well at this time. He still has some shortness of breath, especially with exertion. He denies much cough. Denies any fevers, chills, chest pain, nausea, vomiting, abdominal pain, leg swelling, calf pain, headache or any other symptoms at this time. Review of Systems Review of Systems: All systems reviewed & are unremarkable except as noted in HPI and below Exam Narrative: Exam Narrative: General: 69-year-old man laying flat in bed with head elevated at 30 degrees. Appears fatigued otherwise comfortable, resting comfortably on High Flow NC. In no acute distress. Skin: No jaundice or cyanosis. Good skin turgor. Neck: Full range of motion. Supple. Respiratory: Lungs are clear to auscultation bilaterally. No bony chest wall tenderness. Cardiovascular: The heart has a regular rate and rhythm without murmur. Lower extremities: No lower extremity edema. Distal pulses are easily palpated. No calf tenderness
[2020-07-04 18:23] LABS: Glucose Point of Care 349 (65-105)
[2020-07-04] MEDS: SODIUM CHLORIDE NASAL GEL 14.1 GM 1 APPLIC NASAL (20:26)
[2020-07-04 20:54] LABS: Partial Thromboplastin Time 79.2 SECONDS (22.3-36.8)
[2020-07-05] VITALS (28 sets, daily range): BP systolic 111–130; BP diastolic 52–79; PULSE 49–83; RESP 18–31; TEMP 36.2–36.6; O2SAT 91–100
[2020-07-05 00:09] LABS: Glucose Point of Care 309 (65-105)
[2020-07-05] MEDS: ALBUTEROL SULFATE NEB 2.5 MG/0.5 ML INH 5 MG INHALATION ×4 (02:00→16:50)
[2020-07-05] MEDS: INSULIN ASPART (*BKC) 100 UNITS/ML SUB-Q ×3 (05:38→17:56)
[2020-07-05 05:47] LABS: Basophils Percent Auto 0.2 % (0.2-1.2); Eosinophils Percent Auto 0.1 % (0-4.4); Hematocrit 42.6 % (42.0-52.0); Hemoglobin 14.2 g/dL (14.0-18.0); Immature Granulocyte Absolute 0.29 K/mm3 (0.00-0.031); Immature Granulocyte Percent A 2.1 % (0-0.5); Lymphocytes Absolute Auto 1.18 K/mm3 (0.9-3.2); Lymphocytes Percent Auto 8.7 % (18.3-44.2); Mean Corpuscular HGB Conc 33.3 g/dl (32-36); Mean Corpuscular Hemoglobin 29.2 pg (26-34); Mean Corpuscular Volume 87.7 fl (80-100); Mean Platelet Volume 11.6 fl (7.4-10.4); Monocytes Absolute Auto 0.9 K/mm3 (0.1-0.6); Monocytes Percent Auto 6.4 % (2.6-8.5); Neutrophils Absolute Auto 11.2 K/mm3 (1.3-6.7); Neutrophils Percent Auto 82.5 % (45.5-73.1); Nucleated Red Blood Cells Perc 0.1 % (0.0-0.2); Platelet Count Result 229 k/mm3 (150-375); Red Blood Count 4.86 M/mm3 (4.6-6.20); Red Cell Distribution Width 13.8 % (11.5-14.5); White Blood Count 13.6 K/mm3 (4.5-10.0)
[2020-07-05 05:54] LABS: Glucose Point of Care 279 (65-105)
[2020-07-05 06:42] LABS: Hemoglobin A1C 7.8 % (<5.7)
[2020-07-05 07:43] LABS: Alanine Aminotransferase 25 U/L (4-50); Albumin Level 3.4 g/dL (3.5-5.1); Alkaline Phosphatase 87 U/L (38-126); Anion Gap 7 mmol/L (8-16); Aspartate Amino Transferase 22 U/L (17-59); Bilirubin,Total 1.1 mg/dL (0.2-1.3); Blood Urea Nitrogen 27 mg/dL (9-20); Calcium 9.4 mg/dL (8.4-10.2); Carbon Dioxide 32 mmol/L (22-30); Chloride 101 mmol/L (98-107); Estimated CRCL calculation 109 ml/min; Estimated Glomerular Filt Rate > 60; Glucose 267 mg/dL (75-110); Lactate Dehydrogenase 981 U/L (313-618); Potassium 4.8 mmol/L (3.4-5.0); Sodium 140 mmol/L (137-145)
[2020-07-05 07:57] LABS: Ferritin > 2000.00 ng/mL (11.1-264)
[2020-07-05 08:05] LABS: CRP 11.5 mg/dL (<1.0)
[2020-07-05] MEDS: lisinopriL 5 MG TABLET BY MOUTH (08:48)
[2020-07-05] MEDS: CYANOCOBALAMIN 1,000 MCG TABLET 1000 MCG PO (08:48)
[2020-07-05] MEDS: DEXAMETHASONE SOD PHOS INJ 4 MG/ML VIAL 6 MG IV PUSH (08:48)
[2020-07-05] MEDS: SERTRALINE HCL 50 MG TABLET 100 MG BY MOUTH (08:48)
[2020-07-05] MEDS: TAMSULOSIN HCL 0.4 MG CAPSULE PO (08:48)
[2020-07-05] MEDS: LATANOPROST 0.005% OP SOLN 2.5 ML BTL 1 DROP EACH EYE (08:48)
[2020-07-05] MEDS: ATORVASTATIN 20 MG TABLET BY MOUTH (08:49)
[2020-07-05] MEDS: guaiFENesin/DEXTROMETHORPHAN 10 ML UDC 5 ML PO (09:56)
[2020-07-05] MEDS: APIXABAN 5 MG TABLET 10 MG PO ×2 (09:56→21:02)
[2020-07-05 12:34] LABS: Glucose Point of Care 260 (65-105)
--- NOTE | 2020-07-05 14:53 | PM.IMPN ---
Progress Note: A&P Assessment and Plan (1) Pneumonia due to COVID-19 virus: Code(s): U07.1 - COVID-19; J12.82 - Pneumonia due to coronavirus disease 2019 Status: Acute Assessment and Plan: Patient presented after being found to be COVID positive at home after a swallow on 06/30/2020 after having 2 days the symptoms. He had worsening shortness of breath and fatigue and decided to come for further evaluation. Symptoms began on 06/28/2020 so we will start IV Remdesivir on07/05/2020. Patient is on BiPAP at this time due to hypoxia and tachypnea. You're trying to wean him down as tolerated. Continue monitoring. Continue on Decadron and Remdesivir (2) Pulmonary embolism: Code(s): I26.99 - Other pulmonary embolism without acute cor pulmonale Status: Acute Assessment and Plan: Post COVID. Venous Dopplers negative for DVT. Echo showed LV systolic function normal at 60 to 65%, mild LVH, diastolic dysfunction grade 1. Start Eliquis 10 mg q.12 hours for 7 days then decrease to 5 mg q.12 hours for 3-6 months and have him follow-up with primary care provider for further monitoring. Continue monitoring. (3) Congestive heart failure: Code(s): I50.9 - Heart failure, unspecified Status: Chronic Assessment and Plan: Diastolic dysfunction. It looks like the patient is just on lisinopril. No Lasix. Appears to be euvolemic at this time. (4) HLD (hyperlipidemia): Code(s): E78.5 - Hyperlipidemia, unspecified Status: Acute Assessment and Plan: Will hold statin at this time. (5) Type 2 diabetes mellitus without complications: Code(s): E11.9 - Type 2 diabetes mellitus without complications Status: Acute Assessment and Plan: I am holding his metformin. Hemoglobin A1c is 7.8%. His farxiga is non formulary. He will be on Decadron at this time. Continue Accu-Cheks AC and HS. Sliding scale insulin started. Hypoglycemic protocol in place. (6) Hypertensive heart disease without congestive heart failure: Code(s): I11.9 - Hypertensive heart disease without heart failure Status: Acute Assessment and Plan: Denies any chest pain. Continue with lisinopril. (7) Anxiety: Code(s): F41.9 - Anxiety disorder, unspecified Status: Chronic Assessment and Plan: Continue with sertraline (8) BPH (benign prostatic hyperplasia): Code(s): N40.0 - Benign prostatic hyperplasia without lower urinary tract symptoms Status: Chronic Assessment and Plan: Continue with Flomax. (9) Glaucoma: Code(s): H40.9 - Unspecified glaucoma Status: Chronic Assessment and Plan: Continue with his eyedrops. Time Spent With Patient Time with patient: 25 - 35 minutes Subjective Date/time seen: 07/05/20 14:53 Interval history: Date of service 07/05/2020: Patient states he is feeling well at this time. He is hungry and thirsty but he is on BiPAP due to his oxygen levels and cannot take it off to eat or drink. Otherwise, he still has some shortness of breath, especially with exertion. He denies much cough. Denies any fevers, chills, chest pain, nausea, vomiting, abdominal pain, leg swelling, calf pain, headache or any other symptoms at this time. Review of Systems Review of Systems: All systems reviewed & are unremarkable except as noted in HPI and below Exam Narrative: Exam Narrative: General: 69-year-old man laying flat in bed with head elevated at 30 degrees on his right side. Appears
[2020-07-05 18:03] LABS: Glucose Point of Care 317 (65-105)
[2020-07-05] MEDS: REMDESIVIR 200 MG/NS 250 ML 200 MG/250 ML BAG 250 MG IVPB (18:08)
[2020-07-05] MEDS: SODIUM CHLORIDE NASAL GEL 14.1 GM 1 APPLIC NASAL (21:02)
[2020-07-06] VITALS (21 sets, daily range): BP systolic 99–147; BP diastolic 53–65; PULSE 56–94; RESP 18–29; TEMP 35.9–36.6; O2SAT 92–97
[2020-07-06 00:02] LABS: Glucose Point of Care 310 (65-105)
[2020-07-06] MEDS: INSULIN ASPART (*BKC) 100 UNITS/ML SUB-Q ×4 (00:05→23:59)
[2020-07-06] MEDS: ALBUTEROL SULFATE NEB 2.5 MG/0.5 ML INH 5 MG INHALATION ×4 (02:45→20:50)
[2020-07-06 04:56] LABS: Alanine Aminotransferase 24 U/L (4-50)
[2020-07-06 06:19] LABS: Glucose Point of Care 185 (65-105)
[2020-07-06] MEDS: ATORVASTATIN 20 MG TABLET BY MOUTH (08:24)
[2020-07-06] MEDS: SERTRALINE HCL 50 MG TABLET 100 MG BY MOUTH (08:24)
[2020-07-06] MEDS: APIXABAN 5 MG TABLET 10 MG PO ×2 (08:24→20:45)
[2020-07-06] MEDS: lisinopriL 5 MG TABLET BY MOUTH (08:24)
[2020-07-06] MEDS: CYANOCOBALAMIN 1,000 MCG TABLET 1000 MCG PO (08:24)
[2020-07-06] MEDS: TAMSULOSIN HCL 0.4 MG CAPSULE PO (08:24)
[2020-07-06] MEDS: LATANOPROST 0.005% OP SOLN 2.5 ML BTL 1 DROP EACH EYE (08:25)
[2020-07-06] MEDS: DEXAMETHASONE SOD PHOS INJ 4 MG/ML VIAL 6 MG IV PUSH (08:25)
[2020-07-06 12:39] LABS: Glucose Point of Care 242 (65-105)
--- NOTE | 2020-07-06 13:52 | PM.IMPN ---
Progress Note: A&P Assessment and Plan (1) Pneumonia due to COVID-19 virus: Code(s): U07.1 - COVID-19; J12.82 - Pneumonia due to coronavirus disease 2019 Status: Acute Assessment and Plan: Patient presented after being found to be COVID positive at home after a swallow on 06/30/2020 after having 2 days the symptoms. He had worsening shortness of breath and fatigue and decided to come for further evaluation. Symptoms began on 06/28/2020 so we will start IV Remdesivir on 07/05/2020 (Day #2/5). Patient is on HFNC with nonrebreather at this time and appears comfortable. Continue trying to wean him down as tolerated. Continue monitoring. Continue on Decadron and Remdesivir (2) Pulmonary embolism: Code(s): I26.99 - Other pulmonary embolism without acute cor pulmonale Status: Acute Assessment and Plan: Post COVID. Venous Dopplers negative for DVT. Echo showed LV systolic function normal at 60 to 65%, mild LVH, diastolic dysfunction grade 1. Start Eliquis 10 mg q.12 hours for 7 days then decrease to 5 mg (07/12/2020) q.12 hours for 3-6 months and have him follow-up with primary care provider for further monitoring. Continue monitoring. (3) Congestive heart failure: Code(s): I50.9 - Heart failure, unspecified Status: Chronic Assessment and Plan: Diastolic dysfunction. It looks like the patient is just on lisinopril. No Lasix. Appears to be euvolemic at this time. (4) HLD (hyperlipidemia): Code(s): E78.5 - Hyperlipidemia, unspecified Status: Acute Assessment and Plan: Will hold statin at this time. (5) Type 2 diabetes mellitus without complications: Code(s): E11.9 - Type 2 diabetes mellitus without complications Status: Acute Assessment and Plan: I am holding his metformin. Hemoglobin A1c is 7.8%. His farxiga is non formulary. Glucose was 185 this morning. He will be on Decadron at this time which can increase his glucose leveles. Continue Accu-Cheks ACHS. Sliding scale insulin started. Hypoglycemic protocol in place. (6) Hypertensive heart disease without congestive heart failure: Code(s): I11.9 - Hypertensive heart disease without heart failure Status: Acute Assessment and Plan: Denies any chest pain. Continue with lisinopril. (7) Anxiety: Code(s): F41.9 - Anxiety disorder, unspecified Status: Chronic Assessment and Plan: Continue with sertraline (8) BPH (benign prostatic hyperplasia): Code(s): N40.0 - Benign prostatic hyperplasia without lower urinary tract symptoms Status: Chronic Assessment and Plan: Continue with Flomax. (9) Glaucoma: Code(s): H40.9 - Unspecified glaucoma Status: Chronic Assessment and Plan: Continue with his eyedrops. Time Spent With Patient Time with patient: 25 - 35 minutes Subjective Date/time seen: 07/06/20 13:52 Interval history: Date of service 07/06/2020: Patient states he is feeling well at this time. He has not been able to eat anything today since he is on the nonrebreather mask. Otherwise he is comfortable. Otherwise, he still has some shortness of breath, especially with exertion. He denies much cough. Denies any fevers, chills, chest pain, nausea, vomiting, abdominal pain, leg swelling, calf pain, headache or any other symptoms at this time. Review of Systems Review of Systems: All systems reviewed & are unremarkable except as noted in HPI and below Exam Narrative: Exam
[2020-07-06] MEDS: ACETAMINOPHEN 325 MG TABLET 650 MG PO (14:10)
[2020-07-06 17:07] LABS: Glucose Point of Care 285 (65-105)
[2020-07-06] MEDS: REMDESIVIR 100 MG/NS 250 ML 100 MG/250 ML BAG 250 MG IVPB (20:45)
[2020-07-06] MEDS: SALINE 0.65% NAS SOLN 44 ML BTL 1 SPRAY NASAL (20:45)
[2020-07-06] MEDS: SODIUM CHLORIDE NASAL GEL 14.1 GM 1 APPLIC NASAL (20:49)
[2020-07-07] VITALS (20 sets, daily range): BP systolic 89–121; BP diastolic 53–64; PULSE 65–88; RESP 18–30; TEMP 35.8–36.6; O2SAT 84–98
[2020-07-07 00:04] LABS: Glucose Point of Care 317 (65-105)
[2020-07-07] MEDS: ALBUTEROL SULFATE NEB 2.5 MG/0.5 ML INH 5 MG INHALATION ×3 (02:33→15:02)
[2020-07-07 04:35] LABS: Hematocrit 43.2 % (42.0-52.0); Hemoglobin 14.2 g/dL (14.0-18.0); Mean Corpuscular HGB Conc 32.9 g/dl (32-36); Mean Corpuscular Hemoglobin 28.4 pg (26-34); Mean Corpuscular Volume 86.4 fl (80-100); Mean Platelet Volume 12.2 fl (7.4-10.4); Platelet Count Result 234 k/mm3 (150-375); Red Cell Distribution Width 13.7 % (11.5-14.5); White Blood Count 13.2 K/mm3 (4.5-10.0)
[2020-07-07 04:49] LABS: Alanine Aminotransferase 24 U/L (4-50); Albumin Level 3.6 g/dL (3.5-5.1); Alkaline Phosphatase 76 U/L (38-126); Anion Gap 4 mmol/L (8-16); Aspartate Amino Transferase 22 U/L (17-59); Bilirubin,Total 0.9 mg/dL (0.2-1.3); Blood Urea Nitrogen 35 mg/dL (9-20); CRP 7.4 mg/dL (<1.0); Calcium 9.6 mg/dL (8.4-10.2); Carbon Dioxide 36 mmol/L (22-30); Chloride 104 mmol/L (98-107); Estimated CRCL calculation 95 ml/min; Estimated Glomerular Filt Rate > 60; Glucose 187 mg/dL (75-110); Lactate Dehydrogenase 652 U/L (313-618); Potassium 4.2 mmol/L (3.4-5.0); Sodium 144 mmol/L (137-145)
[2020-07-07] MEDS: CYANOCOBALAMIN 1,000 MCG TABLET 1000 MCG PO (09:11)
[2020-07-07] MEDS: ATORVASTATIN 20 MG TABLET BY MOUTH (09:11)
[2020-07-07] MEDS: TAMSULOSIN HCL 0.4 MG CAPSULE PO (09:11)
[2020-07-07] MEDS: lisinopriL 5 MG TABLET BY MOUTH (09:12)
[2020-07-07] MEDS: APIXABAN 5 MG TABLET 10 MG PO ×2 (09:12→20:16)
[2020-07-07] MEDS: DEXAMETHASONE SOD PHOS INJ 4 MG/ML VIAL 6 MG IV PUSH (09:12)
[2020-07-07] MEDS: SERTRALINE HCL 50 MG TABLET 100 MG BY MOUTH (09:12)
[2020-07-07] MEDS: LATANOPROST 0.005% OP SOLN 2.5 ML BTL 1 DROP EACH EYE (09:13)
--- NOTE | 2020-07-07 13:58 | PM.IMPN ---
Progress Note: A&P Assessment and Plan (1) Acute and chronic respiratory failure with hypoxia: Code(s): J96.21 - Acute and chronic respiratory failure with hypoxia Status: Acute Assessment and Plan: Secondary to COVID pneumonia. Patient is on HFNC with nonrebreather at this time and appears comfortable, 96% with flow rate of 60 and FIO2 at 90. Continue with COVID-19 treatment with IV dexamethasone and Remdesivir, breathing treatments. Wean oxygen as tolerated. (2) Pneumonia due to COVID-19 virus: Code(s): U07.1 - COVID-19; J12.82 - Pneumonia due to coronavirus disease 2018 Status: Acute Assessment and Plan: Patient presented after being found to be COVID positive at home after a swab on 06/30/2020 after having 2 days the symptoms. He had worsening shortness of breath and fatigue and decided to come for further evaluation. Symptoms began on 06/28/2020 so we will start IV Remdesivir on 07/05/2020 (Day #3/5). Rate checked a chest x-ray 07/07/2020 which showed no acute change to COVID-19 pneumonia Continue trying to wean him down as tolerated. Continue monitoring. Continue on Decadron and Remdesivir (3) Pulmonary embolism: Code(s): I26.99 - Other pulmonary embolism without acute cor pulmonale Status: Acute Assessment and Plan: Post COVID. Venous Dopplers negative for DVT. Echo showed LV systolic function normal at 60 to 65%, mild LVH, diastolic dysfunction grade 1. Start Eliquis 10 mg q.12 hours for 7 days then decrease to 5 mg (07/12/2020) q.12 hours for 3-6 months and have him follow-up with primary care provider for further monitoring. Continue monitoring. (4) Abdominal distension: Code(s): R14.0 - Abdominal distension (gaseous) Status: Acute Assessment and Plan: Patient with some lower abdominal distension, could be constipation versus urinary retention. Nontender. Will get a KUB Will have repeat bladder scans Continue monitoring. (5) Congestive heart failure: Code(s): I50.9 - Heart failure, unspecified Status: Chronic Assessment and Plan: Diastolic dysfunction. It looks like the patient is just on lisinopril. No Lasix. Appears to be euvolemic at this time. (6) HLD (hyperlipidemia): Code(s): E78.5 - Hyperlipidemia, unspecified Status: Acute Assessment and Plan: Will hold statin at this time. (7) Type 2 diabetes mellitus without complications: Code(s): E11.9 - Type 2 diabetes mellitus without complications Status: Acute Assessment and Plan: I am holding his metformin. Hemoglobin A1c is 7.8%. His farxiga is non formulary. Glucose was 187 this morning. He will be on Decadron at this time which can increase his glucose leveles. Continue Accu-Cheks ACHS. Sliding scale insulin started. Hypoglycemic protocol in place. (8) Hypertensive heart disease without congestive heart failure: Code(s): I11.9 - Hypertensive heart disease without heart failure Status: Acute Assessment and Plan: Denies any chest pain. Continue with lisinopril. (9) Anxiety: Code(s): F41.9 - Anxiety disorder, unspecified Status: Chronic Assessment and Plan: Continue with sertraline (10) BPH (benign prostatic hyperplasia): Code(s): N40.0 - Benign prostatic hyperplasia without lower urinary tract symptoms Status: Chronic Assessment and Plan: Continue with Flomax. (11) Glaucoma:
[2020-07-07 14:17] LABS: Glucose Point of Care 316 (65-105)
[2020-07-07] MEDS: INSULIN ASPART (*BKC) 100 UNITS/ML SUB-Q ×2 (14:24→17:46)
[2020-07-07 16:58] LABS: Glucose Point of Care 373 (65-105)
[2020-07-07] MEDS: SODIUM CHLORIDE NASAL GEL 14.1 GM 1 APPLIC NASAL (20:16)
[2020-07-07 20:21] LABS: Glucose Point of Care 253 (65-105)
[2020-07-07] MEDS: REMDESIVIR 100 MG/NS 250 ML 100 MG/250 ML BAG 250 MG IVPB (22:00)
[2020-07-08] VITALS (19 sets, daily range): BP systolic 94–122; BP diastolic 55–66; PULSE 61–99; RESP 20–26; TEMP 36–36.6; O2SAT 88–97
[2020-07-08] MEDS: ALBUTEROL SULFATE NEB 2.5 MG/0.5 ML INH 5 MG INHALATION ×4 (03:45→20:37)
[2020-07-08 04:16] LABS: Alanine Aminotransferase 18 U/L (4-50)
[2020-07-08] MEDS: APIXABAN 5 MG TABLET 10 MG PO ×2 (08:01→20:09)
[2020-07-08] MEDS: CYANOCOBALAMIN 1,000 MCG TABLET 1000 MCG PO (08:02)
[2020-07-08] MEDS: TAMSULOSIN HCL 0.4 MG CAPSULE PO (08:02)
[2020-07-08] MEDS: SERTRALINE HCL 50 MG TABLET 100 MG BY MOUTH (08:02)
[2020-07-08] MEDS: ATORVASTATIN 20 MG TABLET BY MOUTH (08:02)
[2020-07-08] MEDS: DEXAMETHASONE SOD PHOS INJ 4 MG/ML VIAL 6 MG IV PUSH (08:02)
[2020-07-08] MEDS: lisinopriL 5 MG TABLET BY MOUTH (08:02)
[2020-07-08] MEDS: guaiFENesin/DEXTROMETHORPHAN 10 ML UDC 5 ML PO (08:02)
[2020-07-08] MEDS: LATANOPROST 0.005% OP SOLN 2.5 ML BTL 1 DROP EACH EYE (08:14)
[2020-07-08 08:35] LABS: Glucose Point of Care 279 (65-105)
[2020-07-08] MEDS: INSULIN ASPART (*BKC) 100 UNITS/ML SUB-Q ×2 (09:04→17:54)
[2020-07-08 11:36] LABS: Alveolar/Arterial O2 Gradient 618.3 mmHg; Base Excess ABG 0.1 mEq/l (+/-2.0); Carboxyhemoglobin 0.3 % THb (0-2.0); Device HIGH FLOW THERAPY; Fractional Inspired Oxygen 100 %; HCO3 ABG 24.1 mEq/l (22.0-26.0); Methemoglobin ABG 0.2 %THb (0-1.5); Modified Allen's Test Pass; Oxygen Content ABG 18.6 %vol (16.0-22.0); Oxygen Saturation ABG 90.6 % (95.0-100.0); Oxyhemoglobin 89.3 % THb (90.0-100.0); PCO2 ABG 37.4 mmHg (35.0-45.0); PO2 ABG 57.3 mmHg (80.0-100.0); PO2 FiO2 Ratio Arterial Blood 0.57 %; Reduced Hemoglobin 10.2 %THb (0-5.0); Site Drawn RIGHT RADIAL; Total Hemoglobin 14.8 g/dL (12.0-18.0); pH ABG 7.427 (7.350-7.450)
[2020-07-08 11:41] LABS: Estimated CRCL calculation 82 ml/min; Estimated Glomerular Filt Rate > 60
[2020-07-08] MEDS: INSULIN ASPART (*BKC) 100 UNITS/ML 10 UNITS SUB-Q (12:06)
[2020-07-08 12:54] LABS: Glucose Point of Care 418 (65-105)
--- NOTE | 2020-07-08 13:17 | PM.IMPN ---
Progress Note: A&P Assessment and Plan (1) Acute and chronic respiratory failure with hypoxia: Code(s): J96.21 - Acute and chronic respiratory failure with hypoxia Status: Acute Assessment and Plan: Secondary to COVID pneumonia. Patient is on HFNC with nonrebreather at this time and appears comfortable, 94% with flow rate of 60 and FIO2 at 100. Will check ABG since one has not been done since arrival. Continue with COVID-19 treatment with IV dexamethasone and Remdesivir, breathing treatments. Wean oxygen as tolerated. (2) Pneumonia due to COVID-19 virus: Code(s): U07.1 - COVID-19; J12.82 - Pneumonia due to coronavirus disease 2018 Status: Acute Assessment and Plan: Patient presented after being found to be COVID positive at home after a swab on 06/30/2020 after having 2 days the symptoms. He had worsening shortness of breath and fatigue and decided to come for further evaluation. Symptoms began on 06/28/2020 so we will start IV Remdesivir on 07/05/2020 (Day #4/5). Rechecked a chest x-ray 07/07/2020 which showed no acute change to COVID-19 pneumonia Continue trying to wean him down as tolerated. Continue monitoring. Continue on Decadron and Remdesivir (3) Pulmonary embolism: Code(s): I26.99 - Other pulmonary embolism without acute cor pulmonale Status: Acute Assessment and Plan: Post COVID. Venous Dopplers negative for DVT. Echo showed LV systolic function normal at 60 to 65%, mild LVH, diastolic dysfunction grade 1. Start Eliquis 10 mg q.12 hours for 7 days then decrease to 5 mg (07/12/2020) q.12 hours for 3-6 months and have him follow-up with primary care provider for further monitoring. Continue monitoring. (4) Abdominal distension: Code(s): R14.0 - Abdominal distension (gaseous) Status: Acute Assessment and Plan: Patient with some lower abdominal distension, could be constipation versus urinary retention. Nontender. KUB showed normal bowel gas pattern. Bladder scan 07/08/2020 was negative. Continue monitoring. (5) Congestive heart failure: Code(s): I50.9 - Heart failure, unspecified Status: Chronic Assessment and Plan: Diastolic dysfunction. It looks like the patient is just on lisinopril. No Lasix. Appears to be euvolemic at this time. (6) HLD (hyperlipidemia): Code(s): E78.5 - Hyperlipidemia, unspecified Status: Acute Assessment and Plan: Will hold statin at this time. (7) Type 2 diabetes mellitus without complications: Code(s): E11.9 - Type 2 diabetes mellitus without complications Status: Acute Assessment and Plan: I am holding his metformin. Hemoglobin A1c is 7.8%. His farxiga is non formulary. Glucose was 279 this morning. Increased Sliding Scale insulin to 7-10 Units to help improve elevated glucose levels while on Decadron. Continue Accu-Cheks ACHS. Sliding scale insulin started. Hypoglycemic protocol in place. (8) Hypertensive heart disease without congestive heart failure: Code(s): I11.9 - Hypertensive heart disease without heart failure Status: Acute Assessment and Plan: Denies any chest pain. Continue with lisinopril. (9) Anxiety: Code(s): F41.9 - Anxiety disorder, unspecified Status: Chronic Assessment and Plan: Continue with sertraline (10) BPH (benign prostatic hyperplasia): Code(s): N40.0 - Benign prostatic hyperplasia without lower urinary tract symptoms Status: Chronic
[2020-07-08 17:36] LABS: Glucose Point of Care 269 (65-105)
[2020-07-08] MEDS: DOCUSATE SODIUM 100 MG CAPSULE PO (20:09)
[2020-07-08] MEDS: SODIUM CHLORIDE NASAL GEL 14.1 GM 1 APPLIC NASAL (20:09)
[2020-07-08 20:25] LABS: Glucose Point of Care 255 (65-105)
[2020-07-08] MEDS: REMDESIVIR 100 MG/NS 250 ML 100 MG/250 ML BAG 250 MG IVPB (21:59)
[2020-07-09] VITALS (23 sets, daily range): BP systolic 92–126; BP diastolic 46–72; PULSE 80–95; RESP 20–28; TEMP 36.3–36.7; O2SAT 90–97
[2020-07-09] MEDS: ALBUTEROL SULFATE NEB 2.5 MG/0.5 ML INH 5 MG INHALATION ×4 (03:02→21:06)
[2020-07-09 08:32] LABS: Glucose Point of Care 252 (65-105)
[2020-07-09 09:08] LABS: Hematocrit 46.3 % (42.0-52.0); Hemoglobin 14.9 g/dL (14.0-18.0); Mean Corpuscular HGB Conc 32.2 g/dl (32-36); Mean Corpuscular Hemoglobin 28.6 pg (26-34); Mean Corpuscular Volume 88.9 fl (80-100); Mean Platelet Volume 12.5 fl (7.4-10.4); Platelet Count Result 307 k/mm3 (150-375); Red Blood Count 5.21 M/mm3 (4.6-6.20); Red Cell Distribution Width 14.1 % (11.5-14.5); White Blood Count 19.2 K/mm3 (4.5-10.0)
[2020-07-09 09:25] LABS: Alanine Aminotransferase 21 U/L (4-50)
[2020-07-09 09:27] LABS: Alanine Aminotransferase 22 U/L (4-50); Albumin Level 3.6 g/dL (3.5-5.1); Alkaline Phosphatase 82 U/L (38-126); Anion Gap 10 mmol/L (8-16); Aspartate Amino Transferase 23 U/L (17-59); Bilirubin,Total 1.1 mg/dL (0.2-1.3); Blood Urea Nitrogen 42 mg/dL (9-20); CRP 6.1 mg/dL (<1.0); Calcium 9.5 mg/dL (8.4-10.2); Carbon Dioxide 27 mmol/L (22-30); Chloride 108 mmol/L (98-107); Estimated CRCL calculation 93 ml/min; Estimated Glomerular Filt Rate > 60; Glucose 274 mg/dL (75-110); Lactate Dehydrogenase 660 U/L (313-618); Potassium 4.5 mmol/L (3.4-5.0); Sodium 145 mmol/L (137-145)
[2020-07-09] MEDS: LATANOPROST 0.005% OP SOLN 2.5 ML BTL 1 DROP EACH EYE (09:53)
[2020-07-09] MEDS: ATORVASTATIN 20 MG TABLET BY MOUTH (09:53)
[2020-07-09] MEDS: APIXABAN 5 MG TABLET 10 MG PO ×2 (09:53→20:50)
[2020-07-09] MEDS: SERTRALINE HCL 50 MG TABLET 100 MG BY MOUTH (09:53)
[2020-07-09] MEDS: TAMSULOSIN HCL 0.4 MG CAPSULE PO (09:53)
[2020-07-09] MEDS: DOCUSATE SODIUM 100 MG CAPSULE PO ×2 (09:53→20:50)
[2020-07-09] MEDS: CYANOCOBALAMIN 1,000 MCG TABLET 1000 MCG PO (09:53)
[2020-07-09] MEDS: lisinopriL 5 MG TABLET BY MOUTH (09:53)
[2020-07-09] MEDS: guaiFENesin/DEXTROMETHORPHAN 10 ML UDC 5 ML PO (09:54)
[2020-07-09] MEDS: DEXAMETHASONE SOD PHOS INJ 4 MG/ML VIAL 6 MG IV PUSH (09:54)
[2020-07-09] MEDS: INSULIN ASPART (*BKC) 100 UNITS/ML SUB-Q ×4 (10:00→17:25)
[2020-07-09 12:07] LABS: Glucose Point of Care 290 (65-105)
--- NOTE | 2020-07-09 14:44 | PM.IMPN ---
Progress Note: A&P Assessment and Plan (1) Acute and chronic respiratory failure with hypoxia: Code(s): J96.21 - Acute and chronic respiratory failure with hypoxia Status: Acute Assessment and Plan: Secondary to COVID pneumonia. Patient is on HFNC with nonrebreather at this time and appears comfortable, 93% with flow rate of 60 and FIO2 at 80. Continue with COVID-19 treatment with IV dexamethasone and Remdesivir, breathing treatments. Wean oxygen as tolerated. (2) Pneumonia due to COVID-19 virus: Code(s): U07.1 - COVID-19; J12.82 - Pneumonia due to coronavirus disease 2018 Status: Acute Assessment and Plan: Patient presented after being found to be COVID positive at home after a swab on 06/30/2020 after having 2 days the symptoms. He had worsening shortness of breath and fatigue and decided to come for further evaluation. Symptoms began on 06/28/2020 so we will start IV Remdesivir on 07/05/2020 (Day #5/5). Rechecked a chest x-ray 07/07/2020 which showed no acute change to COVID-19 pneumonia Continue trying to wean him down as tolerated. Continue monitoring. Continue on Decadron and Remdesivir (3) Pulmonary embolism: Code(s): I26.99 - Other pulmonary embolism without acute cor pulmonale Status: Acute Assessment and Plan: Post COVID. Venous Dopplers negative for DVT. Echo showed LV systolic function normal at 60 to 65%, mild LVH, diastolic dysfunction grade 1. Start Eliquis 10 mg q.12 hours for 7 days then decrease to 5 mg (07/12/2020) q.12 hours for 3-6 months and have him follow-up with primary care provider for further monitoring. Continue monitoring. (4) Abdominal distension: Code(s): R14.0 - Abdominal distension (gaseous) Status: Acute Assessment and Plan: Patient with some lower abdominal distension, could be constipation versus urinary retention. Nontender. KUB showed normal bowel gas pattern. Bladder scan 07/08/2020 was negative. Abdomen is now soft and nontender. Denies any pain. Continue monitoring. (5) Congestive heart failure: Code(s): I50.9 - Heart failure, unspecified Status: Chronic Assessment and Plan: Diastolic dysfunction. It looks like the patient is just on lisinopril. No Lasix. Appears to be euvolemic at this time. (6) HLD (hyperlipidemia): Code(s): E78.5 - Hyperlipidemia, unspecified Status: Acute Assessment and Plan: Will hold statin at this time. (7) Type 2 diabetes mellitus without complications: Code(s): E11.9 - Type 2 diabetes mellitus without complications Status: Acute Assessment and Plan: I am holding his metformin. Hemoglobin A1c is 7.8%. His farxiga is non formulary. Glucose was 274 this morning. Increased Sliding Scale insulin to 7-10 Units as well as adding 4 units of NovoLog with meals to help improve elevated glucose levels while on Decadron. Continue Accu-Cheks ACHS. Sliding scale insulin started. Hypoglycemic protocol in place. (8) Hypertensive heart disease without congestive heart failure: Code(s): I11.9 - Hypertensive heart disease without heart failure Status: Acute Assessment and Plan: Denies any chest pain. Continue with lisinopril. (9) Anxiety: Code(s): F41.9 - Anxiety disorder, unspecified Status: Chronic Assessment and Plan: Continue with sertraline (10) BPH (benign prostatic hyperplasia): Code(s): N40.0 - Benign prostatic hyperplasia without lower urinary
[2020-07-09 16:28] LABS: Glucose Point of Care 187 (65-105)
[2020-07-09 19:59] LABS: Glucose Point of Care 154 (65-105)
[2020-07-09] MEDS: REMDESIVIR 100 MG/NS 250 ML 100 MG/250 ML BAG 250 MG IVPB (20:51)
[2020-07-09] MEDS: SODIUM CHLORIDE NASAL GEL 14.1 GM 1 APPLIC NASAL (20:51)
[2020-07-10] VITALS (31 sets, daily range): BP systolic 80–128; BP diastolic 32–85; PULSE 79–102; RESP 18–32; TEMP 35.7–36.6; O2SAT 85–98; BMI 22.0
[2020-07-10] MEDS: ALBUTEROL SULFATE NEB 2.5 MG/0.5 ML INH 5 MG INHALATION ×4 (03:11→20:42)
[2020-07-10 07:59] LABS: Glucose Point of Care 283 (65-105)
[2020-07-10] MEDS: TAMSULOSIN HCL 0.4 MG CAPSULE PO (09:20)
[2020-07-10] MEDS: LATANOPROST 0.005% OP SOLN 2.5 ML BTL 1 DROP EACH EYE (09:20)
[2020-07-10] MEDS: DEXAMETHASONE SOD PHOS INJ 4 MG/ML VIAL 6 MG IV PUSH (09:20)
[2020-07-10] MEDS: SERTRALINE HCL 50 MG TABLET 100 MG BY MOUTH (09:20)
[2020-07-10] MEDS: APIXABAN 5 MG TABLET 10 MG PO ×2 (09:21→20:07)
[2020-07-10] MEDS: DOCUSATE SODIUM 100 MG CAPSULE PO ×2 (09:23→20:07)
[2020-07-10] MEDS: ATORVASTATIN 20 MG TABLET BY MOUTH (09:23)
[2020-07-10] MEDS: CYANOCOBALAMIN 1,000 MCG TABLET 1000 MCG PO (09:23)
[2020-07-10] MEDS: INSULIN ASPART (*BKC) 100 UNITS/ML SUB-Q ×5 (09:26→16:48)
--- NOTE | 2020-07-10 11:09 | PM.IMPN ---
Progress Note: A&P Assessment and Plan (1) Pneumonia due to COVID-19 virus: Code(s): U07.1 - COVID-19; J12.82 - Pneumonia due to coronavirus disease 2019 Status: Acute Assessment and Plan: Patient presented after being found to be COVID positive at home after a swab on 06/30/2020 after having 2 days the symptoms. He had worsening shortness of breath and fatigue and decided to come for further evaluation. Symptoms began on 06/28/2020 so we will start IV Remdesivir on 07/05/2020 (Day #5/5). Rechecked a chest x-ray 07/07/2020 which showed no acute change to COVID-19 pneumonia Since he is on day 7, without much respiratory change, still requiring AirVo with nonrebreather mask will administer IV Plasma (Day #1, if still no improvement tomorrow, consider doing plasma a second day.) Continue trying to wean him down as tolerated. Continue monitoring. Continue on Decadron and Remdesivir (2) Acute and chronic respiratory failure with hypoxia: Code(s): J96.21 - Acute and chronic respiratory failure with hypoxia Status: Acute Assessment and Plan: Secondary to COVID pneumonia. Patient is on HFNC with nonrebreather at this time and appears comfortable, 96% with flow rate of 50 and FIO2 at 70. Continue with COVID-19 treatment with IV dexamethasone and Remdesivir, breathing treatments. Wean oxygen as tolerated. (3) Poor diet: Code(s): E63.9 - Nutritional deficiency, unspecified Status: Acute Assessment and Plan: Patient has not been eating much, which is consistent with COVID and lack of appetite. I have talked to dietitian about different supplementation I educated the patient that he needs to at least drink the Glucerna he is on now to help with his calorie and nutrition Giving plasma today to see if it helps with improvement of symptoms, will continue to monitor his diet and ensure he does not need any PPN if he continues to not eat. Continue monitoring. Appreciate dietitian input. (4) Pulmonary embolism: Code(s): I26.99 - Other pulmonary embolism without acute cor pulmonale Status: Acute Assessment and Plan: Post COVID. Venous Dopplers negative for DVT. Echo showed LV systolic function normal at 60 to 65%, mild LVH, diastolic dysfunction grade 1. Start Eliquis 10 mg q.12 hours for 7 days then decrease to 5 mg (07/12/2020) q.12 hours for 3-6 months and have him follow-up with primary care provider for further monitoring. Continue monitoring. (5) Abdominal distension: Code(s): R14.0 - Abdominal distension (gaseous) Status: Acute Assessment and Plan: Patient with some lower abdominal distension, could be constipation versus urinary retention. Nontender. KUB showed normal bowel gas pattern. Bladder scan 07/08/2020 was negative. Abdomen is now soft and nontender. Denies any pain. Continue monitoring. (6) Congestive heart failure: Code(s): I50.9 - Heart failure, unspecified Status: Chronic Assessment and Plan: Diastolic dysfunction. It looks like the patient is just on lisinopril. No Lasix. Appears to be euvolemic at this time. (7) HLD (hyperlipidemia): Code(s): E78.5 - Hyperlipidemia, unspecified Status: Acute Assessment and Plan: Will hold statin at this time. (8) Type 2 diabetes mellitus without complications: Code(s): E11.9 - Type 2 diabetes mellitus without complications Status: Acute Assessment and Plan: I am holding his metformin. Hemoglobin A1c is 7.8%. His farxiga is non formulary. Glucose was 283 this morning. Continue with Sliding Scal
[2020-07-10 11:51] LABS: Glucose Point of Care 268 (65-105)
[2020-07-10 16:18] LABS: Glucose Point of Care 169 (65-105)
[2020-07-10] MEDS: SODIUM CHLORIDE 0.9% IV 250 ML 30 ML IV CONT (16:49)
[2020-07-10] MEDS: LACTATED RINGERS 500 ML 100 ML IV CONT (20:07)
[2020-07-10] MEDS: SODIUM CHLORIDE NASAL GEL 14.1 GM 1 APPLIC NASAL (20:08)
--- NOTE | 2020-07-10 20:32 | PC.NURSE ---
Pt video chatted with family.
[2020-07-10 20:54] LABS: Glucose Point of Care 177 (65-105)
[2020-07-10 21:22] LABS: Basophils Percent Auto 0.2 % (0.2-1.2); Eosinophils Percent Auto 0.1 % (0-4.4); Hematocrit 46.9 % (42.0-52.0); Hemoglobin 15.2 g/dL (14.0-18.0); Immature Granulocyte Absolute 0.23 K/mm3 (0.00-0.031); Immature Granulocyte Percent A 1.2 % (0-0.5); Lymphocytes Absolute Auto 1.37 K/mm3 (0.9-3.2); Mean Corpuscular HGB Conc 32.4 g/dl (32-36); Mean Corpuscular Hemoglobin 28.9 pg (26-34); Mean Corpuscular Volume 89.2 fl (80-100); Mean Platelet Volume 12.9 fl (7.4-10.4); Monocytes Absolute Auto 1.5 K/mm3 (0.1-0.6); Monocytes Percent Auto 7.8 % (2.6-8.5); Neutrophils Absolute Auto 16.4 K/mm3 (1.3-6.7); Neutrophils Percent Auto 83.7 % (45.5-73.1); Platelet Count Result 338 k/mm3 (150-375); Red Blood Count 5.26 M/mm3 (4.6-6.20); Red Cell Distribution Width 14.2 % (11.5-14.5); White Blood Count 19.6 K/mm3 (4.5-10.0)
[2020-07-10 21:24] LABS: Alveolar/Arterial O2 Gradient 617.6 mmHg; Carboxyhemoglobin 0.3 % THb (0-2.0); Fractional Inspired Oxygen 100 %; HCO3 ABG 24.3 mEq/l (22.0-26.0); Methemoglobin ABG 0.4 %THb (0-1.5); Oxygen Content ABG 19.7 %vol (16.0-22.0); Oxygen Saturation ABG 92.6 % (95.0-100.0); Oxyhemoglobin 90.7 % THb (90.0-100.0); PO2 ABG 60.4 mmHg (80.0-100.0); Reduced Hemoglobin 8.6 %THb (0-5.0); Total Hemoglobin 15.5 g/dL (12.0-18.0)
[2020-07-10 21:25] LABS: Device HIGH FLOW THERAPY; Modified Allen's Test Pass; Site Drawn LEFT RADIAL
[2020-07-10 21:32] LABS: INR 3.2; Prothrombin Time 33.3 Seconds (11.1-14.7)
[2020-07-10 21:48] LABS: Alanine Aminotransferase 24 U/L (4-50)
[2020-07-10 21:49] LABS: Albumin Level 3.7 g/dL (3.5-5.1); Alkaline Phosphatase 96 U/L (38-126); Anion Gap 10 mmol/L (8-16); Aspartate Amino Transferase 24 U/L (17-59); Bilirubin,Total 1.1 mg/dL (0.2-1.3); Blood Urea Nitrogen 49 mg/dL (9-20); Calcium 10.2 mg/dL (8.4-10.2); Carbon Dioxide 29 mmol/L (22-30); Chloride 114 mmol/L (98-107); Estimated CRCL calculation 74 ml/min; Estimated Glomerular Filt Rate > 60; Glucose 183 mg/dL (75-110); Lactate Dehydrogenase 586 U/L (313-618); Potassium 3.9 mmol/L (3.4-5.0); Sodium 153 mmol/L (137-145)
--- NOTE | 2020-07-10 22:05 | PM.EVENT ---
Event Note Event Note Event Note: 07/10/2020 at 9:00 p.m. Nursing staff called to notify me that the patient has been hypotensive for good portion of the day and remains hypotensive. The patient is also encephalopathic. Patient's blood pressure was 88/54. The patient's fluid balance has been persistently negative since admission. Patient's chart was reviewed and stat labs were ordered including ABG, CMP, CBC, lactic acid, LDH and ferritin. The patient's lactic acid return at 4, his sodium returned high at 153, his BUN had climbed from 27 on admission up to 49. Temperature 97.8? pulse 92 Respiratory 24 blood pressure 84/58 oxygen saturations between 88 and 92% are 85% at 50 L GENERAL: Acutely ill-appearing, elderly, well-developed well-nourished HEENT: Dry mucous membranes, Airvo and non-rebreather in place, head is normocephalic atraumatic CARDIOVASCULAR: Regular rate, regular rhythm, 2+ bilateral radial pulses RESPIRATORY: Mild tachypnea, no accessory muscle use ABDOMEN: Soft, nontender, positive bowel sounds INTEGUMENT: Generalized pallor, cool to touch NEUROLOGIC: Alert and oriented to self only, he stated the month was January and could not state the year he did not know use in the hospital or why PSYCHIATRIC: Flat affect, depressed mood, cooperative EXTREMITIES: No clubbing, cyanosis or significant edema : Normal external male genitalia Chest x-ray: Worsening infiltrate radiologic interpretation pending Assessment plan: 1. COVID pneumonia with increasing white count--white count could be increasing due to steroid use however given worsening chest x-ray will place the patient on a antibiotic therapy to cover for possible secondary bacterial pneumonia. Continue Airvo a non-rebreather. ABG was reviewed and was stable. Comp less than plasma therapy. He had already received 2 rounds of Remdesivir. 2. Hypotension--likely secondary to volume depletion. The patient has had little to no oral intake over the course of the last week. His BUN has climbed significantly since admission. His sodium has also climbed any now has some hypernatremia. Will give the patient a 30 mL/kilos bolus chronic 500 mL an hour. Will repeat lactic acid level. 3. Lactic acidosis likely secondary to hypovolemia as mentioned above will give fluid bolus and repeat lactic acid level 4. Encephalopathy--multifactorial likely due to hospital induced delirium and dehydration with uremia and hypernatremia. Will treat underlying causes and continue to monitor. 5. Protein calorie malnutrition--the patient has not had much oral intake. He would benefit from PPN. 80 minutes spent in critical care activities
[2020-07-10] MEDS: LACTATED RINGERS 2,400 ML 500 ML IV CONT (22:32)
[2020-07-11] VITALS (23 sets, daily range): BP systolic 97–127; BP diastolic 42–63; PULSE 63–107; RESP 18–24; TEMP 36.2–36.6; O2SAT 93–99
[2020-07-11 00:27] LABS: Reflex Lactic Acid Yes or No Add Lactic
[2020-07-11 01:36] LABS: Lactic Acid 1.7 mmol/L (0.7-2.1)
[2020-07-11 05:28] LABS: Hematocrit 42.1 % (42.0-52.0); Hemoglobin 13.2 g/dL (14.0-18.0); Immature Platelet Fraction Pct 12.1 % (0.9-11.2); Mean Corpuscular HGB Conc 31.4 g/dl (32-36); Mean Corpuscular Hemoglobin 28.6 pg (26-34); Mean Corpuscular Volume 91.3 fl (80-100); Mean Platelet Volume 12.9 fl (7.4-10.4); Platelet Count Result 249 k/mm3 (150-375); Red Blood Count 4.61 M/mm3 (4.6-6.20); Red Cell Distribution Width 14.3 % (11.5-14.5); White Blood Count 14.4 K/mm3 (4.5-10.0)
[2020-07-11 05:47] LABS: Alanine Aminotransferase 16 U/L (4-50); Albumin Level 2.9 g/dL (3.5-5.1); Alkaline Phosphatase 76 U/L (38-126); Anion Gap 5 mmol/L (8-16); Aspartate Amino Transferase 18 U/L (17-59); Bilirubin,Total 0.8 mg/dL (0.2-1.3); Blood Urea Nitrogen 44 mg/dL (9-20); CRP 4.3 mg/dL (<1.0); Carbon Dioxide 31 mmol/L (22-30); Chloride 113 mmol/L (98-107); Estimated CRCL calculation 82 ml/min; Estimated Glomerular Filt Rate > 60; Glucose 257 mg/dL (75-110); Lactate Dehydrogenase 510 U/L (313-618); Sodium 149 mmol/L (137-145)
[2020-07-11] MEDS: LACTATED RINGERS 1,000 ML 75 ML IV CONT (06:30)
[2020-07-11 08:29] LABS: Glucose Point of Care 242 (65-105)
[2020-07-11] MEDS: ALBUTEROL SULFATE NEB 2.5 MG/0.5 ML INH 5 MG INHALATION ×4 (08:46→21:23)
[2020-07-11] MEDS: LIDOCAINE HCL 1% PF INJ 5 ML VIAL INFILTRATE (10:10)
--- NOTE | 2020-07-11 10:41 | PCOTNOTE ---
Attempted OT evaluation, pt is currently having a PICC line placed at this time, will attempt in afternoon.
[2020-07-11] MEDS: DEXAMETHASONE SOD PHOS INJ 4 MG/ML VIAL 6 MG IV PUSH (12:25)
[2020-07-11] MEDS: LATANOPROST 0.005% OP SOLN 2.5 ML BTL 1 DROP EACH EYE (12:25)
[2020-07-11] MEDS: DOCUSATE SODIUM 100 MG CAPSULE PO ×2 (12:25→20:26)
[2020-07-11] MEDS: APIXABAN 5 MG TABLET 10 MG PO ×2 (12:25→20:25)
[2020-07-11] MEDS: SERTRALINE HCL 50 MG TABLET 100 MG BY MOUTH (12:26)
[2020-07-11] MEDS: CYANOCOBALAMIN 1,000 MCG TABLET 1000 MCG PO (12:26)
[2020-07-11] MEDS: lisinopriL 5 MG TABLET BY MOUTH (12:26)
[2020-07-11] MEDS: ATORVASTATIN 20 MG TABLET BY MOUTH (12:26)
[2020-07-11] MEDS: TAMSULOSIN HCL 0.4 MG CAPSULE PO (12:26)
[2020-07-11] MEDS: INSULIN ASPART (*BKC) 100 UNITS/ML SUB-Q ×3 (12:30→17:33)
[2020-07-11 12:39] LABS: Glucose Point of Care 321 (65-105)
--- NOTE | 2020-07-11 13:33 | PM.CNPUL ---
Assessment and Plan Assessment and plan (1) Pneumonia due to COVID-19 virus: Code(s): U07.1 - COVID-19; J12.82 - Pneumonia due to coronavirus disease 2018 Status: Acute Assessment and Plan: Will add an additional 5 days of from the severe for a total of 10. Continue dexamethasone 6 mg IV for total of 10 days. (2) ARDS (adult respiratory distress syndrome): Code(s): J80 - Acute respiratory distress syndrome Status: Acute Assessment and Plan: Prone positioning is required to improve his outcome. We should try prone positioning during the day for as long as tolerated. Continue to wean oxygen to maintain O2 sats of 92-96%. (3) Hypovolemia: Code(s): E86.1 - Hypovolemia Status: Acute Assessment and Plan: Corrected after IV crystalloid fluid boluses. I doubt that he is septic but will continue to monitor. If blood and urine cultures are negative for 24-48 hours antibiotics can be discontinued in my opinion. History of Present Illness History of Present Illness Consult date: 07/11/20 Chief complaint: Pulmonary embolism, covid pneumonia, hypoxia Narrative: This is a very pleasant 69-year-old male who was admitted on July 05, 2020 with decreased appetite and lower extremity pain. He was found to be COVID positive with bilateral interstitial pneumonia consistent with COVID pneumonia. Symptoms began on June 30 or . Upon admission he was started on room does severe and dexamethasone and he has received a total of 5 days of rum does severe and 5 days of dexamethasone. He is not adequately improving and in fact last night he deteriorated hemodynamically became hypotensive and he improved with fluid resuscitation. I was told by the nurse that he received approximately 2400 cc of crystalloids and his blood pressure has stabilized. I suspect that he was likely dehydrated and sepsis is unlikely. I do not see blood cultures or urine cultures done but he was started on antibiotics. His lactic acid was elevated at greater than 4 and has now normalized after fluid resuscitation. He continues to have decreased appetite but is drinking or liquids and is now on maintenance IV fluids at 75 cc an hour. He is currently on a non-rebreather face mask with regular oxygen through a regular nasal cannula. His chest x-ray continues to show bilateral interstitial opacities consistent with COVID pneumonia and ARDS. He has a history of coronary artery disease with prior PA and PCI as well as congestive heart failure, hypertension and diabetes. He also has a 30 pack-year smoking history but quit approximately 32 years ago. Review of Systems Review of Systems: All systems reviewed & are unremarkable except as noted in HPI and below PMFSH Past Medical History Medical History (Updated 07/11/20 @ 13:44 by Svetlana Calles MD) Anxiety BPH (benign prostatic hyperplasia) BPH loc w urin obs/LUTS Chronic low back pain Congestive heart failure Diastolic Coronary artery disease involving [place] coronary artery of [place] heart Depression Glaucoma History of PA (myocardial infarction) HLD (hyperlipidemia) Hypertensive heart disease without congestive heart failure Primary open angle glaucoma of both eyes PVD (peripheral vascular disease) Type 2 diabetes mellitus without complications Surgical History Surgical History (Updated 07/03/20 @ 22:30 by Brianne Santos NP) H/O heart artery stent X7 History of carpal tunnel release History of lung surgery History of PTCA History of shoulder surgery Arthroscopic S/P lumbar fusion Family History Family History Mother Family history of lung cancer Family history of coronary artery disease, Onset Age: 65 Hypertension Patient's mother is Grandparent Diabetes mellitus Sibling Family history of malignant neoplasm Patient's sister is Patient's sister
--- NOTE | 2020-07-11 16:39 | PM.IMPN ---
Progress Note: A&P Assessment and Plan (1) Pneumonia due to COVID-19 virus: Code(s): U07.1 - COVID-19; J12.82 - Pneumonia due to coronavirus disease 2019 Status: Acute Assessment and Plan: Patient presented after being found to be COVID positive at home after a swab on 06/30/2020 after having 2 days the symptoms. He had worsening shortness of breath and fatigue and decided to come for further evaluation. Symptoms began on 06/28/2020 so we will start IV Remdesivir on 07/05/2020 (Day #5/5). Rechecked a chest x-ray 07/07/2020 which showed no acute change to COVID-19 pneumonia Since he is on day 7, without much respiratory change, still requiring AirVo with nonrebreather mask will administer IV Plasma (Day #1, if still no improvement tomorrow, consider doing plasma a second day.) Continue trying to wean him down as tolerated. Continue monitoring. Continue on Decadron and Remdesivir 07/11/20 16:39 Patient is 69-year-old male tightness with COVID now last night patient was hypertension and encephalopathic academic adviser was called and evaluate patient was started on IVF and transferred patient to IMU, today patient states is feeling little better not a short of breath and denies any fever or chills, patient was seen by pulmonology recommended to continue dexamethasone and extended Remdesivir for another 5 days, tankman is also concern about patient's p.o. intake specially nutrition status recommending if there is no improvement may place [place] and start the G-tube feeds, will have a speech pathologist as well as dietitian evaluate the patient further recommendation. Will continue to monitor and further recommendation to follow. (2) Acute and chronic respiratory failure with hypoxia: Code(s): J96.21 - Acute and chronic respiratory failure with hypoxia Status: Acute Assessment and Plan: Secondary to COVID pneumonia. Patient is on HFNC with nonrebreather at this time and appears comfortable, 96% with flow rate of 50 and FIO2 at 70. Continue with COVID-19 treatment with IV dexamethasone and Remdesivir, breathing treatments. Wean oxygen as tolerated. (3) Poor diet: Code(s): E63.9 - Nutritional deficiency, unspecified Status: Acute Assessment and Plan: Patient has not been eating much, which is consistent with COVID and lack of appetite. I have talked to dietitian about different supplementation I educated the patient that he needs to at least drink the Glucerna he is on now to help with his calorie and nutrition Giving plasma today to see if it helps with improvement of symptoms, will continue to monitor his diet and ensure he does not need any PPN if he continues to not eat. Continue monitoring. Appreciate dietitian input. (4) Pulmonary embolism: Code(s): I26.99 - Other pulmonary embolism without acute cor pulmonale Status: Acute Assessment and Plan: Post COVID. Venous Dopplers negative for DVT. Echo showed LV systolic function normal at 60 to 65%, mild LVH, diastolic dysfunction grade 1. Start Eliquis 10 mg q.12 hours for 7 days then decrease to 5 mg (07/12/2020) q.12 hours for 3-6 months and have him follow-up with primary care provider for further monitoring. Continue monitoring. (5) Abdominal distension: Code(s): R14.0 - Abdominal distension (gaseous) Status: Acute Assessment and Plan: Patient with some lower abdominal distension, could be constipation versus urinary retention. Nontender. KUB showed normal bowel gas pattern. Bladder scan 07/08/2020 was negative. Abdomen is now soft and nontender. Denies any pain. Continue monitoring. (6) Congestive heart failure: Code(s): I50.9 - Heart failure,
[2020-07-11 16:46] LABS: Glucose Point of Care 149 (65-105)
[2020-07-11] MEDS: CENTRAL LINE FLUSH 10 ML IV PUSH ×2 (17:36→22:07)
[2020-07-11] MEDS: REMDESIVIR 100 MG/NS 250 ML 100 MG/250 ML BAG 250 MG IVPB (17:39)
[2020-07-11] MEDS: SODIUM CHLORIDE NASAL GEL 14.1 GM 1 APPLIC NASAL (20:26)
[2020-07-11 20:57] LABS: Glucose Point of Care 91 (65-105)
[2020-07-12] VITALS (33 sets, daily range): BP systolic 81–129; BP diastolic 42–78; PULSE 61–107; RESP 18–42; TEMP 35.4–36.6; O2SAT 87–99
[2020-07-12] MEDS: ALBUTEROL SULFATE NEB 2.5 MG/0.5 ML INH 5 MG INHALATION ×3 (03:47→14:07)
[2020-07-12 05:42] LABS: Basophils Percent Auto 0.1 % (0.2-1.2); Eosinophils Absolute Auto 0.1 K/mm3 (0-0.3); Eosinophils Percent Auto 0.6 % (0-4.4); Hematocrit 38.4 % (42.0-52.0); Immature Granulocyte Absolute 0.21 K/mm3 (0.00-0.031); Immature Granulocyte Percent A 1.3 % (0-0.5); Immature Platelet Fraction Pct 10.2 % (0.9-11.2); Lymphocytes Absolute Auto 1.12 K/mm3 (0.9-3.2); Lymphocytes Percent Auto 6.8 % (18.3-44.2); Mean Corpuscular HGB Conc 31.3 g/dl (32-36); Mean Corpuscular Hemoglobin 27.6 pg (26-34); Mean Corpuscular Volume 88.5 fl (80-100); Mean Platelet Volume 13.1 fl (7.4-10.4); Monocytes Absolute Auto 1.1 K/mm3 (0.1-0.6); Monocytes Percent Auto 6.8 % (2.6-8.5); Neutrophils Percent Auto 84.4 % (45.5-73.1); Platelet Count Result 202 k/mm3 (150-375); Red Blood Count 4.34 M/mm3 (4.6-6.20); Red Cell Distribution Width 13.9 % (11.5-14.5); White Blood Count 16.6 K/mm3 (4.5-10.0)
[2020-07-12 06:09] LABS: Alanine Aminotransferase 14 U/L (4-50); Albumin Level 2.4 g/dL (3.5-5.1); Alkaline Phosphatase 71 U/L (38-126); Anion Gap 7 mmol/L (8-16); Aspartate Amino Transferase 21 U/L (17-59); Bilirubin,Total 0.6 mg/dL (0.2-1.3); Blood Urea Nitrogen 23 mg/dL (9-20); Calcium 8.5 mg/dL (8.4-10.2); Carbon Dioxide 29 mmol/L (22-30); Chloride 110 mmol/L (98-107); Estimated CRCL calculation 107 ml/min; Estimated Glomerular Filt Rate > 60; Glucose 139 mg/dL (75-110); Potassium 3.6 mmol/L (3.4-5.0); Sodium 146 mmol/L (137-145)
[2020-07-12 09:12] LABS: Glucose Point of Care 191 (65-105)
--- NOTE | 2020-07-12 09:17 | PM.PNPUL ---
Progress Note: A&P Assessment and Plan (1) ARDS (adult respiratory distress syndrome): Code(s): J80 - Acute respiratory distress syndrome Status: Acute Assessment and Plan: we need to try daily awake prone positioning in this patient or else he may further decline and require intubation and mechanical ventilation. At that point his outcome becomes much worse and his mortality rate is greater than 90% (2) Hypovolemia: Code(s): E86.1 - Hypovolemia Status: Acute (3) Acute and chronic respiratory failure with hypoxia: Code(s): J96.21 - Acute and chronic respiratory failure with hypoxia Status: Acute (4) Pneumonia due to COVID-19 virus: Code(s): U07.1 - COVID-19; J12.82 - Pneumonia due to coronavirus disease 2019 Status: Acute Subjective Date/time seen: 07/12/20 09:17 Interval history: The patient continues to do poorly requiring high doses of oxygen. He refused to do awake prone positioning as recommended by me yesterday. I reminded him back again today that awake prone positioning can potentially save his life and prevent further worsening of his condition Review of Systems Review of Systems: All systems reviewed & are unremarkable except as noted in HPI and below Exam Const: General: cooperative, comfortable, alert, awake, acute distress and ill appearing Nutritional Appearance: average body habitus Orientation/consciousness: oriented to person, oriented to place, oriented to time and patient oriented x3 HENMT: Head: normal to inspection, normocephalic and atraumatic Eyes: General: appearance normal, both eyes and all related structures Neck: Neck: trachea midline and supple Resp: Effort & Inspection: labored (mildly labored breathing ) Cardio: Jugular venous distension: no JVD Rate: regular rate Rhythm: regular rhythm GI: Inspection: normal to inspection Auscultation: normal bowel sounds Skin: General skin exam: normal color and no rashes or lesions noted Neuro: General: oriented to person, oriented to place, oriented to time and patient oriented x3 Cognition (Neuro): normal cognition Speech: normal speech Extrem: General: normal to inspection and no clubbing, cyanosis or edema Objective Data Vital Signs Vital Signs: Vital Signs - 24 hr 07/11/20 10:00 07/11/20 12:00 07/11/20 14:00 Temperature 36.5 C Pulse Rate 83 78 81 Respiratory Rate 20 Blood Pressure 121/63 Pulse Oximetry 95 07/11/20 14:17 07/11/20 14:20 07/11/20 14:30 Temperature Pulse Rate 73 85 88 Respiratory Rate 20 20 20 Blood Pressure Pulse Oximetry 96 07/11/20 16:00 07/11/20 18:00 07/11/20 20:00 Temperature 36.6 C 36.5 C Pulse Rate 76 64 70 Respiratory Rate 18 20 Blood Pressure 114/62 97/50 L Pulse Oximetry 95 95 07/11/20 21:23 07/11/20 21:25 07/11/20 21:48 Temperature Pulse Rate 63 96 78 Respiratory Rate 20 20 20 Blood Pressure Pulse Oximetry 96 07/11/20 22:00 07/12/20 00:00 07/12/20 02:00 Temperature 36.6 C Pulse Rate 69 61 67 Respiratory Rate 20 Blood Pressure 93/42 L Pulse Oximetry 95 07/12/20 03:47 07/12/20 04:00 07/12/20 04:02 Temperature 36.5 C Pulse Rate 68 77 70 Respiratory Rate 20 20 20 Blood Pressure 115/58 L Pulse Oximetry 98 96 07/12/20 06:00 07/12/20 08:00 Temperature 36.6 C Pulse Rate 81 75 Respiratory Rate 30 H Blood Pressure 114/62 Pulse Oximetry 90 Intake/Output Intake/Output: Intake & Output 07/09/20 07/10/20 07/11/20 07/12/20 23:59 23:59 23:59 23:59 Intake Total 630 620 450 100 Output Total 138 426 5167 875 Balance -270 76 -888 -257 Meds/Results Medications: Active Medications Generic Name Dose Route Start Last Admin Trade Name Freq PRN Reason Stop Dose Admin Acetaminophen 650 mg 07/03/20 15:35 07/06/20 14:10 Acetaminophen 325 Mg Tablet PO 650 mg Q4H PRN Administration Mild Pain (1-3) or Fever Hydrocodone Bitart/Acetaminophen 1
[2020-07-12] MEDS: LACTATED RINGERS 1,000 ML 75 ML IV CONT ×2 (09:44→16:45)
[2020-07-12] MEDS: CENTRAL LINE FLUSH 10 ML IV PUSH ×2 (09:45→21:28)
[2020-07-12] MEDS: APIXABAN 5 MG TABLET 10 MG PO (09:46)
[2020-07-12] MEDS: DEXAMETHASONE SOD PHOS INJ 4 MG/ML VIAL 6 MG IV PUSH (09:47)
[2020-07-12] MEDS: ATORVASTATIN 20 MG TABLET BY MOUTH (09:47)
[2020-07-12] MEDS: CYANOCOBALAMIN 1,000 MCG TABLET 1000 MCG PO (09:47)
[2020-07-12] MEDS: LATANOPROST 0.005% OP SOLN 2.5 ML BTL 1 DROP EACH EYE (09:49)
[2020-07-12] MEDS: SERTRALINE HCL 50 MG TABLET 100 MG BY MOUTH (09:49)
[2020-07-12] MEDS: lisinopriL 5 MG TABLET BY MOUTH (09:49)
[2020-07-12] MEDS: TAMSULOSIN HCL 0.4 MG CAPSULE PO (09:50)
[2020-07-12] MEDS: REMDESIVIR 100 MG/NS 250 ML 100 MG/250 ML BAG 250 MG IVPB (09:50)
[2020-07-12] MEDS: DOCUSATE SODIUM 100 MG CAPSULE PO (09:59)
[2020-07-12 13:40] LABS: Glucose Point of Care 286 (65-105)
--- NOTE | 2020-07-12 14:21 | ECG_ITS ---
Measurements Intervals [place] Rate: 74 P: 38 OK: 121 QRS: 1 QRSD: 110 T: -7 QT: 413 QTc: 460 Interpretive Statements SINUS RHYTHM CONSIDER INFERIOR INFARCT, AGE INDETERMINATE BORDERLINE ST-T WAVE ABNORMALITY- ANTEROLATERAL LEADS BASELINE WANDER- V2-V4, V6 ABNORMAL ECG Electronically Signed On 07-12-2020 15:09:01 RESTAURANT GENERAL MANAGER by Derick Porras D.O.
[2020-07-12] MEDS: INSULIN ASPART (*BKC) 100 UNITS/ML SUB-Q ×4 (14:23→23:30)
[2020-07-12] MEDS: FENTANYL 2,500MCG/NS250ML(*CRX 2,500 MCG/250 ML BAG IV CONT (15:40)
--- NOTE | 2020-07-12 15:55 | PC.NURSE ---
1549 sister Rebecca Walton called for status update due to speaking with daughter Tanesha
--- NOTE | 2020-07-12 15:56 | PC.NURSE ---
[id number] called daughter Tanesha update provided. Emotional support provided. Requests nursing staff to utilize father's phone to call with [employer] messenger.
--- NOTE | 2020-07-12 15:57 | WPDCNINT ---
Assessment and Plan Assessment and plan (1) Acute respiratory failure with hypoxia: Code(s): J96.01 - Acute respiratory failure with hypoxia Status: Acute Assessment and Plan: Acute hypoxic respiratory failure likely related to COVID-19 pneumonia, ARDS physiology -chest x-ray reviewed worsening bilateral infiltrates -will obtain ABGs post intubation -continue low tidal volume strategy, peep of 12, 100% FiO2, wean FiO2 to maintain O2 sats greater than 92% -fentanyl and Versed for sedation -patient dyssynchronous with the ventilator, will add some Nimbex for neuromuscular blockade -will add Flolan -patient on ceftriaxone and azithromycin which was initiated on 07/10/2020 (2) Pulmonary embolism: Code(s): I26.99 - Other pulmonary embolism without acute cor pulmonale Status: Acute Assessment and Plan: Patient presented with increasing shortness of breath, CTA chest showed bilateral pulmonary emboli -continue Eliquis (3) Pneumonia due to COVID-19 virus: Code(s): U07.1 - COVID-19; J12.82 - Pneumonia due to coronavirus disease 2018 Status: Acute Assessment and Plan: COVID-19 positive -continue droplet, airborne and contact isolation/precautions -will follow inflammatory markers -patient currently on dexamethasone, -patient has received Remdesivir x5 doses, pulmonology was to continue Remdesivir for another 5 days (4) Type 2 diabetes mellitus without complications: Code(s): E11.9 - Type 2 diabetes mellitus without complications Status: Acute Assessment and Plan: Continue high-dose sliding scale and Accu-Cheks (5) DVT prophylaxis: Code(s): Z29.9 - Encounter for prophylactic measures, unspecified Status: Acute Assessment and Plan: Continue Eliquis (6) Dietary counseling and surveillance: Code(s): Z71.3 - Dietary counseling and surveillance Status: Acute Assessment and Plan: Stress ulcer prophylaxis: Will add Protonix Additional Plan Left message with Calli Green, Pt's and his daughter Tanesha did them with patient's condition plan of care. They are aware that patient has been intubated mechanical ventilation. I answered all questions. Patient's daughter and rested that he be a full code Code status: Full code Critical care time spent: 51 minutes Due to a high probability of clinically significant, life threatening deterioration, the patient required my highest level of preparedness to intervene emergently and I personally spent this critical care time directly and personally managing the patient. This critical care time included obtaining a history; examining the patient; pulse oximetry; ordering and review of studies; arranging urgent treatment with development of a management plan; evaluation of patient's response to treatment; frequent reassessment; and discussions with other providers. It was exclusive of separately billable procedures and treating other patients and teaching time. Please see Assessment and Plan section and the rest of the note for further information on patient assessment and treatment Software Configuration Engineer Consult Note Consult date: 07/12/20 Time Seen: 16:00 Reason for consult: Acute hypoxic respiratory failure, COVID-19 pneumonia, bilateral pulmonary embolism HPI: Russell Norma Moody is a 69 year old male with past medical history of diastolic heart failure, coronary artery disease, mi, hyperlipidemia, hypertension peripheral vascular disease, diet presented the ED on 07/03/2020 with complaints of shortness of breath. He was tested positive for COVID-19 prior to arrival to the ED, unsure of the date. He also was complaining of confusion, shortness of breath and exertion on Remdesivir and dexamethasone. He has been hypotensive requiring fluid resuscitation during the course of stay in the hospital. He also had a lactic acid greater than 4 which normalized after fluid resuscitation. Patient has been on high-germán
--- NOTE | 2020-07-12 16:02 | PCDIET ---
Nutrition consult received. Patient in transit from IMU to ICU on mechanical ventilation. If enteral nutrition is initiated overnight, recommend Glucerna 1.2 at 20mL/hr. Patient with minimal intake for several days and may be at risk of refeeding syndrome. Will follow in ICU and recommend progression of tube feedings toward goal, as appropriate.
[2020-07-12] MEDS: ROCURONIUM BROMIDE 50 MG/5 ML VIAL IV PUSH (16:23)
[2020-07-12] MEDS: SODIUM CHLORIDE 0.9% IV 1,000 ML 999 ML IV CONT (16:26)
[2020-07-12] MEDS: CISATRACURIUM BESYLATE 200 MG in DEXTROSE 5% 80 ML 7 ML IV CONT (16:41)
--- NOTE | 2020-07-12 16:48 | WPDPROCEDUR ---
Procedures Intubation Intubation Date: 07/12/20 A pre-procedural Time-Out was completed immediately before starting the procedure and confirmed: Patient Identification, Site, Procedure, Patient Position and the Availability of Requisite Equipment: Yes Sedative: etomidate Paralytic: rocuronium Laryngoscope: fiber optic video scope Assist device used: fiber optic device ET tube size: 8 Tube secured depth (cm): 24 Tube secured location: lips Tube placement confirmation: visualized tube passing through cords, equal breath sounds bilaterally, no breath sounds over epigastrium and confirmation by capnometry Patient tolerated procedure: well Intubation complications: none
[2020-07-12] MEDS: EPOPROSTENOL SODIUM 0.5 MG VIAL 1 MG INHALATION ×2 (17:09→20:11)
[2020-07-12 17:19] LABS: Alveolar/Arterial O2 Gradient 597.7 mmHg; Base Excess ABG -1.3 mEq/l (+/-2.0); Carboxyhemoglobin 0.3 % THb (0-2.0); Device VENTILATOR; Fractional Inspired Oxygen 100 %; HCO3 ABG 24.7 mEq/l (22.0-26.0); Methemoglobin ABG 0.2 %THb (0-1.5); Modified Allen's Test Pass; Oxygen Content ABG 18.2 %vol (16.0-22.0); Oxygen Saturation ABG 92.8 % (95.0-100.0); Oxyhemoglobin 91.1 % THb (90.0-100.0); PCO2 ABG 46.4 mmHg (35.0-45.0); PO2 ABG 68.9 mmHg (80.0-100.0); PO2 FiO2 Ratio Arterial Blood 0.69 %; Reduced Hemoglobin 8.4 %THb (0-5.0); Site Drawn LEFT RADIAL; Total Hemoglobin 14.2 g/dL (12.0-18.0); pH ABG 7.344 (7.350-7.450)
[2020-07-12 17:20] LABS: Arterial Blood Gas PEEP 12 cmH2O; Arterial Blood Gas Tidal Volume 450 ml; Arterial Blood Gas Vent Mode CMV; Arterial Blood Gas Ventilator rate 30 /MIN
--- NOTE | 2020-07-12 18:13 | PM.IMPN ---
Progress Note: A&P Assessment and Plan (1) Pneumonia due to COVID-19 virus: Code(s): U07.1 - COVID-19; J12.82 - Pneumonia due to coronavirus disease 2019 Status: Acute Assessment and Plan: Patient presented after being found to be COVID positive at home after a swab on 06/30/2020 after having 2 days the symptoms. He had worsening shortness of breath and fatigue and decided to come for further evaluation. Symptoms began on 06/28/2020 so we will start IV Remdesivir on 07/05/2020 (Day #5/5). Rechecked a chest x-ray 07/07/2020 which showed no acute change to COVID-19 pneumonia Since he is on day 7, without much respiratory change, still requiring AirVo with nonrebreather mask will administer IV Plasma (Day #1, if still no improvement tomorrow, consider doing plasma a second day.) Continue trying to wean him down as tolerated. Continue monitoring. 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 intake specially nutrition status recommending if there is no improvement may place [place] and start the G-tube feeds, will have a speech pathologist as well as dietitian evaluate the patient further recommendation. Will continue to monitor and further recommendation to follow. 07/12 today patient is quite hypoxic he is on high-flow oxygen and saturation is not improved discussed with production control scheduler was evaluated the patient and patient was intubated and transferred to ICU. (2) Acute and chronic respiratory failure with hypoxia: Code(s): J96.21 - Acute and chronic respiratory failure with hypoxia Status: Acute Assessment and Plan: Secondary to COVID pneumonia. Patient is on HFNC with nonrebreather at this time and appears comfortable, 96% with flow rate of 50 and FIO2 at 70. Continue with COVID-19 treatment with IV dexamethasone and Remdesivir, breathing treatments. Wean oxygen as tolerated. (3) Poor diet: Code(s): E63.9 - Nutritional deficiency, unspecified Status: Acute Assessment and Plan: Patient has not been eating much, which is consistent with COVID and lack of appetite. I have talked to dietitian about different supplementation I educated the patient that he needs to at least drink the Glucerna he is on now to help with his calorie and nutrition Giving plasma today to see if it helps with improvement of symptoms, will continue to monitor his diet and ensure he does not need any PPN if he continues to not eat. Continue monitoring. Appreciate dietitian input. (4) Pulmonary embolism: Code(s): I26.99 - Other pulmonary embolism without acute cor pulmonale Status: Acute Assessment and Plan: Post COVID. Venous Dopplers negative for DVT. Echo showed LV systolic function normal at 60 to 65%, mild LVH, diastolic dysfunction grade 1. Start Eliquis 10 mg q.12 hours for 7 days then decrease to 5 mg (07/12/2020) q.12 hours for 3-6 months and have him follow-up with primary care provider for further monitoring. Continue monitoring. (5) Abdominal distension: Code(s): R14.0 - Abdominal distension (gaseous) Status: Acute Assessment and Plan: Patient with some lower abdominal distension, could be constipation versus urinary retention. Nontender. KUB showed normal bowel gas pattern. Bladder scan 07/08/2020 was negative. Abdomen is no
[2020-07-12 18:40] LABS: Glucose Point of Care 248 (65-105)
[2020-07-12 18:59] LABS: Magnesium 1.9 mg/dL (1.6-2.3); Potassium 3.7 mmol/L (3.4-5.0)
[2020-07-12] MEDS: APIXABAN 5 MG TABLET PO (21:28)
[2020-07-12 23:40] LABS: Glucose Point of Care 210 (65-105)
[2020-07-13] VITALS (56 sets, daily range): BP systolic 77–114; BP diastolic 45–65; PULSE 54–97; RESP 26–30; TEMP 35.9–37.2; O2SAT 90–99; BMI 24.3
[2020-07-13] MEDS: SODIUM CHLORIDE 0.9% IV 500 ML IV CONT ×2 (00:05→00:35)
[2020-07-13] MEDS: EPOPROSTENOL SODIUM 0.5 MG VIAL 1 MG INHALATION ×3 (02:05→18:15)
[2020-07-13] MEDS: NOREPINEPHRINE 8 MG/D5W 250 ML 8 MG/250 ML BAG 9.38 MG IV CONT (02:13)
[2020-07-13] MEDS: CENTRAL LINE FLUSH 10 ML IV PUSH ×3 (04:33→21:08)
[2020-07-13 04:56] LABS: Alveolar/Arterial O2 Gradient 530.1 mmHg; Base Excess ABG -1.5 mEq/l (+/-2.0); Carboxyhemoglobin 0.3 % THb (0-2.0); Fractional Inspired Oxygen 90 %; HCO3 ABG 22.3 mEq/l (22.0-26.0); Methemoglobin ABG 0.3 %THb (0-1.5); Oxygen Content ABG 16.2 %vol (16.0-22.0); Oxygen Saturation ABG 95.8 % (95.0-100.0); PCO2 ABG 34.3 mmHg (35.0-45.0); PO2 ABG 76.5 mmHg (80.0-100.0); PO2 FiO2 Ratio Arterial Blood 0.85 %; Reduced Hemoglobin 5.4 %THb (0-5.0); Total Hemoglobin 12.2 g/dL (12.0-18.0)
[2020-07-13 04:57] LABS: Device VENTILATOR; Modified Allen's Test Pass; Site Drawn LEFT RADIAL
[2020-07-13 04:58] LABS: Arterial Blood Gas PEEP 12 cmH2O; Arterial Blood Gas Tidal Volume 450 ml; Arterial Blood Gas Vent Mode CMV; Arterial Blood Gas Ventilator rate 30 /MIN
[2020-07-13 04:58] LABS: Basophils Percent Auto 0.2 % (0.2-1.2); Eosinophils Absolute Auto 0.1 K/mm3 (0-0.3); Eosinophils Percent Auto 0.5 % (0-4.4); Hematocrit 36.6 % (42.0-52.0); Hemoglobin 11.8 g/dL (14.0-18.0); Immature Granulocyte Absolute 0.37 K/mm3 (0.00-0.031); Lymphocytes Absolute Auto 1.46 K/mm3 (0.9-3.2); Lymphocytes Percent Auto 7.9 % (18.3-44.2); Mean Corpuscular HGB Conc 32.2 g/dl (32-36); Mean Corpuscular Hemoglobin 28.6 pg (26-34); Mean Corpuscular Volume 88.6 fl (80-100); Monocytes Percent Auto 5.3 % (2.6-8.5); Neutrophils Absolute Auto 15.5 K/mm3 (1.3-6.7); Neutrophils Percent Auto 84.1 % (45.5-73.1); Platelet Count Result 208 k/mm3 (150-375); Red Blood Count 4.13 M/mm3 (4.6-6.20); Red Cell Distribution Width 13.9 % (11.5-14.5); White Blood Count 18.4 K/mm3 (4.5-10.0)
[2020-07-13 05:21] LABS: Lactic Acid Reflex 1.2 mmol/L (0.7-2.1)
[2020-07-13 05:29] LABS: D Dimer 0.99 ug/mL (<0.48)
[2020-07-13 05:43] LABS: Alanine Aminotransferase 14 U/L (4-50); Albumin Level 2.4 g/dL (3.5-5.1); Alkaline Phosphatase 80 U/L (38-126); Anion Gap 0 mmol/L (8-16); Aspartate Amino Transferase 22 U/L (17-59); Bilirubin,Total 0.6 mg/dL (0.2-1.3); Blood Urea Nitrogen 19 mg/dL (9-20); Calcium 8.4 mg/dL (8.4-10.2); Carbon Dioxide 29 mmol/L (22-30); Chloride 116 mmol/L (98-107); Estimated CRCL calculation 98 ml/min; Estimated Glomerular Filt Rate > 60; Glucose 135 mg/dL (75-110); Phosphorus 2.9 mg/dL (2.5-4.5); Potassium 3.3 mmol/L (3.4-5.0); Sodium 145 mmol/L (137-145)
[2020-07-13 06:08] LABS: CRP 22.2 mg/dL (<1.0); Lactate Dehydrogenase 781 U/L (313-618)
--- NOTE | 2020-07-13 07:20 | PCOTNOTE ---
Pt had a change in medical status, was intubated on 07/12/2020. D/C from skilled OT at this time. New orders when patient is medically appropriate.
--- NOTE | 2020-07-13 08:01 | PCPTNOTE ---
Pt had a change in medical status and was intubated on 07/12/2020. PT will discontinue PT services at this time and await new orders when patient is medically appropriate.
[2020-07-13] MEDS: PANTOPRAZOLE SODIUM IV 40 MG VIAL IV PUSH (08:05)
[2020-07-13] MEDS: CYANOCOBALAMIN 1,000 MCG TABLET 1000 MCG PO (08:05)
[2020-07-13] MEDS: ATORVASTATIN 20 MG TABLET BY MOUTH (08:06)
[2020-07-13] MEDS: DEXAMETHASONE SOD PHOS INJ 4 MG/ML VIAL 6 MG IV PUSH (08:06)
[2020-07-13] MEDS: APIXABAN 5 MG TABLET PO ×2 (08:06→21:04)
[2020-07-13] MEDS: CISATRACURIUM BESYLATE 200 MG in DEXTROSE 5% 80 ML IV CONT (08:18)
[2020-07-13 09:02] LABS: Alanine Aminotransferase 14 U/L (4-50); Albumin Level 2.4 g/dL (3.5-5.1); Alkaline Phosphatase 78 U/L (38-126); Anion Gap 5 mmol/L (8-16); Aspartate Amino Transferase 19 U/L (17-59); Bilirubin,Total 0.7 mg/dL (0.2-1.3); Blood Urea Nitrogen 17 mg/dL (9-20); Calcium 8.2 mg/dL (8.4-10.2); Carbon Dioxide 26 mmol/L (22-30); Chloride 110 mmol/L (98-107); Estimated CRCL calculation 98 ml/min; Estimated Glomerular Filt Rate > 60; Glucose 278 mg/dL (75-110); Potassium 3.4 mmol/L (3.4-5.0); Sodium 141 mmol/L (137-145)
[2020-07-13] MEDS: POTASSIUM CHLORIDE 20 MEQ PACKET (FOR LIQUID) 40 MEQ FEED TUBE (09:27)
[2020-07-13] MEDS: REMDESIVIR 100 MG/NS 250 ML 100 MG/250 ML BAG 250 MG IVPB (09:27)
--- NOTE | 2020-07-13 11:10 | PCDIET ---
ICU Rounding Note: Patient intubated with plan to start tube feeding today. Recommended Glucerna 1.2 at maximum goal of 40mL/hr for first 24 hours due to risk of refeeding syndrome. Will re-evaluate in 24 hours with ultimate goal of 65mL/hr. Last recorded weight is 85.7kg which is increased from last review. Bowel Motility: Last documented BM on 07/12/20. Labs Reviewed: Hgb (11.8), Hct (36.6), Glu (278), Alb (2.4) Meds Noted: Albuterol, Fentanyl, Versed, Levophed, Azithromycin, Vitamin B12, Protonix, Rocephin, Nimbex, Miralax, Remdesivir Additional Notes: Corrected calcium normal. No skin breakdown documented. Following daily in ICU rounds. Assessing/reassessing every 3 days.
--- NOTE | 2020-07-13 12:09 | WPDINTPN ---
Progress Note: A&P Assessment and Plan (1) Acute respiratory failure with hypoxia: Code(s): J96.01 - Acute respiratory failure with hypoxia Status: Acute Assessment and Plan: Acute hypoxic respiratory failure likely related to COVID-19 pneumonia, ARDS physiology -chest x-ray reviewed and shows persistent bilateral infiltrates -patient intubated 07/12 -continue low tidal volume strategy, currently FiO2 is at 80%, I will increase PEEP to 15 -fentanyl and Versed for sedation -patient dyssynchronous with the ventilator, continue Nimbex for neuromuscular blockade -continue Flolan -patient on ceftriaxone and azithromycin which was initiated on 07/10/2020 -patient was placed in prone position overnight (2) Pulmonary embolism: Code(s): I26.99 - Other pulmonary embolism without acute cor pulmonale Status: Acute Assessment and Plan: Patient presented with increasing shortness of breath, CTA chest showed bilateral pulmonary emboli -continue Eliquis (3) Pneumonia due to COVID-19 virus: Code(s): U07.1 - COVID-19; J12.82 - Pneumonia due to coronavirus disease 2018 Status: Acute Assessment and Plan: COVID-19 positive -continue droplet, airborne and contact isolation/precautions -will follow inflammatory markers -patient currently on dexamethasone, -patient has received Remdesivir x5 doses, pulmonology was to continue Remdesivir for another 5 days (4) Type 2 diabetes mellitus without complications: Code(s): E11.9 - Type 2 diabetes mellitus without complications Status: Acute Assessment and Plan: Continue high-dose sliding scale and Accu-Cheks Add Lantus (5) DVT prophylaxis: Code(s): Z29.9 - Encounter for prophylactic measures, unspecified Status: Acute Assessment and Plan: Continue Eliquis (6) Dietary counseling and surveillance: Code(s): Z71.3 - Dietary counseling and surveillance Status: Acute Assessment and Plan: Stress ulcer prophylaxis: Will add Protonix (7) Electrolyte abnormality: Code(s): E87.8 - Other disorders of electrolyte and fluid balance, not elsewhere classified Status: Acute Assessment and Plan: Replace low potassium Additional Plan I spoke to Pt's and his daughter Tanesha by phone today and clarified whether patient had neck surgery. They told me that he did have a neck surgery in the past any always had difficulty turning his neck. I updated them with patient's current status and continued needle high ventilatory support, neuromuscular max, inhaled Flolan and bruise on his nose from pressure secondary to prone positioning. Due to his neck rigidity we may not be able to continue daily proning if we are unable to find a way to protect his face and nose Code status: Full code Critical care time spent: 35 minutes Due to a high probability of clinically significant, life threatening deterioration, the patient required my highest level of preparedness to intervene emergently and I personally spent this critical care time directly and personally managing the patient. This critical care time included obtaining a history; examining the patient; pulse oximetry; ordering and review of studies; arranging urgent treatment with development of a management plan; evaluation of patient's response to treatment; frequent reassessment; and discussions with other providers. It was exclusive of separately billable procedures and treating other patients and teaching time. Please see Assessment and Plan section and the rest of the note for further information on patient assessment and treatment Subjective Date/time seen: 07/13/20 12:09 Overnight events reviewed. Afebrile Continues to be on mechanical ventilation He was placed in prone position overnight Vitals acceptable Sedated and chemically paralyzed Review of Systems Review of Systems: ROS unobtainable: Yes unobtainable due to endotracheal t
[2020-07-13] MEDS: POTASSIUM CHLORIDE 20 MEQ PACKET (FOR LIQUID) FEED TUBE (12:44)
[2020-07-13] MEDS: INSULIN ASPART (*BKC) 100 UNITS/ML SUB-Q ×2 (12:45→17:57)
[2020-07-13] MEDS: INSULIN GLARGINE (*BKC) 100 UNITS/ML 15 UNITS SUB-Q (12:47)
[2020-07-13 12:54] LABS: Glucose Point of Care 263 (65-105)
[2020-07-13] MEDS: FENTANYL 2,500MCG/NS250ML(*CRX 2,500 MCG/250 ML BAG 10 MCG IV CONT (18:28)
[2020-07-13 18:35] LABS: Glucose Point of Care 266 (65-105)
[2020-07-13] MEDS: NOREPINEPHRINE 8 MG/D5W 250 ML 8 MG/250 ML BAG 16.88 MG IV CONT (23:06)
[2020-07-14] VITALS (46 sets, daily range): BP systolic 64–118; BP diastolic 50–74; PULSE 58–103; RESP 30–32; TEMP 35.9–36.6; O2SAT 93–100
[2020-07-14 00:27] LABS: Glucose Point of Care 260 (65-105)
[2020-07-14] MEDS: INSULIN ASPART (*BKC) 100 UNITS/ML SUB-Q ×3 (00:51→18:07)
[2020-07-14] MEDS: EPOPROSTENOL SODIUM 0.5 MG VIAL 1 MG INHALATION ×4 (02:03→22:52)
[2020-07-14 04:50] LABS: Alveolar/Arterial O2 Gradient 420.6 mmHg; Base Excess ABG -0.2 mEq/l (+/-2.0); Carboxyhemoglobin 0.2 % THb (0-2.0); Fractional Inspired Oxygen 80 %; HCO3 ABG 27.5 mEq/l (22.0-26.0); Methemoglobin ABG 0.4 %THb (0-1.5); Oxygen Saturation ABG 95.7 % (95.0-100.0); Oxyhemoglobin 95.2 % THb (90.0-100.0); PCO2 ABG 58.2 mmHg (35.0-45.0); PO2 ABG 88.7 mmHg (80.0-100.0); PO2 FiO2 Ratio Arterial Blood 1.11 %; Reduced Hemoglobin 4.2 %THb (0-5.0); Site Drawn LEFT RADIAL; Total Hemoglobin 13.4 g/dL (12.0-18.0)
[2020-07-14 04:51] LABS: Device VENTILATOR; Modified Allen's Test Unable to perform; pH ABG 7.292 (7.350-7.450)
[2020-07-14 05:02] LABS: Basophils Absolute Auto 0.1 K/mm3 (0.0-0.1); Basophils Percent Auto 0.3 % (0.2-1.2); Hemoglobin 12.3 g/dL (14.0-18.0); Immature Granulocyte Absolute 0.57 K/mm3 (0.00-0.031); Immature Granulocyte Percent A 2.7 % (0-0.5); Lymphocytes Absolute Auto 1.43 K/mm3 (0.9-3.2); Lymphocytes Percent Auto 6.9 % (18.3-44.2); Mean Corpuscular HGB Conc 31.5 g/dl (32-36); Mean Corpuscular Hemoglobin 28.7 pg (26-34); Mean Corpuscular Volume 90.9 fl (80-100); Monocytes Absolute Auto 1.1 K/mm3 (0.1-0.6); Monocytes Percent Auto 5.4 % (2.6-8.5); Neutrophils Absolute Auto 17.6 K/mm3 (1.3-6.7); Neutrophils Percent Auto 84.7 % (45.5-73.1); Platelet Count Result 216 k/mm3 (150-375); Red Blood Count 4.29 M/mm3 (4.6-6.20); Red Cell Distribution Width 14.3 % (11.5-14.5); White Blood Count 20.8 K/mm3 (4.5-10.0)
[2020-07-14] MEDS: CENTRAL LINE FLUSH 10 ML IV PUSH ×3 (05:12→20:51)
[2020-07-14 05:21] LABS: Alanine Aminotransferase 19 U/L (4-50); Albumin Level 2.6 g/dL (3.5-5.1); Alkaline Phosphatase 88 U/L (38-126); Anion Gap -2 mmol/L (8-16); Aspartate Amino Transferase 27 U/L (17-59); Bilirubin,Total 0.4 mg/dL (0.2-1.3); Blood Urea Nitrogen 23 mg/dL (9-20); Calcium 8.5 mg/dL (8.4-10.2); Carbon Dioxide 32 mmol/L (22-30); Chloride 110 mmol/L (98-107); Estimated CRCL calculation 77 ml/min; Estimated Glomerular Filt Rate > 60; Glucose 208 mg/dL (75-110); Potassium 4.2 mmol/L (3.4-5.0); Sodium 140 mmol/L (137-145)
[2020-07-14 05:32] LABS: Magnesium 2.2 mg/dL (1.6-2.3); Phosphorus 3.8 mg/dL (2.5-4.5)
[2020-07-14] MEDS: INSULIN GLARGINE (*BKC) 100 UNITS/ML 15 UNITS SUB-Q (08:03)
[2020-07-14] MEDS: PANTOPRAZOLE SODIUM IV 40 MG VIAL IV PUSH (08:06)
[2020-07-14] MEDS: ATORVASTATIN 20 MG TABLET BY MOUTH (08:06)
[2020-07-14] MEDS: APIXABAN 5 MG TABLET PO ×2 (08:06→20:46)
[2020-07-14] MEDS: CYANOCOBALAMIN 1,000 MCG TABLET 1000 MCG PO (08:07)
[2020-07-14 08:12] LABS: Arterial Blood Gas PEEP 15 cmH2O; Arterial Blood Gas Tidal Volume 400 ml; Arterial Blood Gas Vent Mode CMV; Arterial Blood Gas Ventilator rate 30 /MIN
[2020-07-14] MEDS: REMDESIVIR 100 MG/NS 250 ML 100 MG/250 ML BAG 250 MG IVPB (10:43)
[2020-07-14] MEDS: LATANOPROST 0.005% OP SOLN 2.5 ML BTL 1 DROP EACH EYE (10:44)
--- NOTE | 2020-07-14 10:46 | WPDINTPN ---
Progress Note: A&P Assessment and Plan (1) Acute respiratory failure with hypoxia: Code(s): J96.01 - Acute respiratory failure with hypoxia Status: Acute Assessment and Plan: Acute hypoxic respiratory failure likely related to COVID-19 pneumonia, ARDS physiology -chest x-ray reviewed and shows persistent bilateral infiltrates -patient intubated 07/12 -continue low tidal volume strategy, currently FiO2 is at 80%, PEEP to 15 - RR increased to 32 after review of ABG -fentanyl and Versed for sedation -patient dyssynchronous with the ventilator, continue Nimbex for neuromuscular blockade -continue Flolan -patient on ceftriaxone and azithromycin which was initiated on 07/10/2020 -patient was placed in prone position overnight and will be continued daily -patient has history of neck surgery and neck is to firm to allow placing his face on the side. Patient is prone with head gear board from OR to protect his face and nose (2) Pulmonary embolism: Code(s): I26.99 - Other pulmonary embolism without acute cor pulmonale Status: Acute Assessment and Plan: Patient presented with increasing shortness of breath, CTA chest showed bilateral pulmonary emboli -continue Eliquis (3) Pneumonia due to COVID-19 virus: Code(s): U07.1 - COVID-19; J12.82 - Pneumonia due to coronavirus disease 2019 Status: Acute Assessment and Plan: COVID-19 positive -continue droplet, airborne and contact isolation/precautions -will follow inflammatory markers -patient currently on dexamethasone, -patient has received Remdesivir x5 doses, pulmonology was to continue Remdesivir for another 5 days through 07/15 (4) Type 2 diabetes mellitus without complications: Code(s): E11.9 - Type 2 diabetes mellitus without complications Status: Acute Assessment and Plan: Continue high-dose sliding scale and Accu-Cheks Increase Lantus (5) DVT prophylaxis: Code(s): Z29.9 - Encounter for prophylactic measures, unspecified Status: Acute Assessment and Plan: Continue Eliquis (6) Dietary counseling and surveillance: Code(s): Z71.3 - Dietary counseling and surveillance Status: Acute Assessment and Plan: Stress ulcer prophylaxis: Will add Protonix Tube feeds have been on and off due to high residuals. Add Reglan (7) Electrolyte abnormality: Code(s): E87.8 - Other disorders of electrolyte and fluid balance, not elsewhere classified Status: Acute Additional Plan Code status: Full code Critical care time spent: 30 minutes Due to a high probability of clinically significant, life threatening deterioration, the patient required my highest level of preparedness to intervene emergently and I personally spent this critical care time directly and personally managing the patient. This critical care time included obtaining a history; examining the patient; pulse oximetry; ordering and review of studies; arranging urgent treatment with development of a management plan; evaluation of patient's response to treatment; frequent reassessment; and discussions with other providers. It was exclusive of separately billable procedures and treating other patients and teaching time. Please see Assessment and Plan section and the rest of the note for further information on patient assessment and treatment Subjective Date/time seen: 07/14/20 Overnight events reviewed. Afebrile. Adequate urine output Continues to be on mechanical ventilation Continues to be on Levophed and sedation Chemically paralyzed Was placed in prone position overnight Review of Systems Review of Systems: ROS unobtainable: Yes unobtainable due to endotracheal tube Exam Const: General: comfortable and no acute distress HENMT: Other: ETT in place Eyes: Sclera: sclerae normal Pupils: Equal, round and reactive pupils present Neck: Neck: supple Resp: Effort & Inspection: normal respiratory effort [place]
[2020-07-14] MEDS: NOREPINEPHRINE 8 MG/D5W 250 ML 8 MG/250 ML BAG 24.38 MG IV CONT (10:57)
--- NOTE | 2020-07-14 11:10 | PCDIET ---
Nutrition Follow-Up Complete: Nutrition Diagnosis: Inadequate oral intake related to poor appetite as evidenced by patient statements, intake records 25% or less x 1 week. Nutrition Goal: Patient to meet estimated nutritional needs. Goal in progress. Tube feedings held for 225mL residual overnight. MD order to restart tube feedings when supine (~12:00pm). Last recorded weight is 85.8 kg which is stable. Bowel Motility: BM x 1 on 07/13/20. Labs Reviewed: Hgb (12.3), Hct (39.0), Glu (208), BUN (23), Cl (110), Alb (2.6) Meds Noted: Remdesivir, Albuterol, Lipitor, Rocephin, Zithromax, Nimbex, Vitamin B12, Colace, Fentanyl, Lantus, Protonix, Novolog, Versed, Levophed Additional Notes: No skin breakdown reported. Will continue to monitor with same goal. Nutrition Monitoring and Evaluation: Follow up every Friday/Friday. Follow daily in ICU rounds.
[2020-07-14] MEDS: METOCLOPRAMIDE HCL INJ 10 MG/2 ML VIAL 5 MG IV PUSH ×2 (15:03→18:06)
[2020-07-14 15:12] LABS: Glucose Point of Care 155 (65-105)
[2020-07-14] MEDS: CISATRACURIUM BESYLATE 200 MG in DEXTROSE 5% 80 ML 7 ML IV CONT (15:16)
[2020-07-14] MEDS: FENTANYL 2,500MCG/NS250ML(*CRX 2,500 MCG/250 ML BAG 10 MCG IV CONT (15:17)
[2020-07-14 18:03] LABS: Glucose Point of Care 230 (65-105)
[2020-07-14] MEDS: NOREPINEPHRINE 8 MG/D5W 250 ML 8 MG/250 ML BAG 39.38 MG IV CONT (18:05)
--- NOTE | 2020-07-14 20:50 | PCDIET ---
nasal gel and eye lubricant not applied due to pt being in prone position.
[2020-07-15] VITALS (52 sets, daily range): BP systolic 64–166; BP diastolic 5–74; PULSE 65–104; RESP 30–34; TEMP 35.5–37.1; O2SAT 90–99
[2020-07-15] MEDS: INSULIN ASPART (*BKC) 100 UNITS/ML SUB-Q ×5 (00:17→23:21)
[2020-07-15] MEDS: METOCLOPRAMIDE HCL INJ 10 MG/2 ML VIAL 5 MG IV PUSH ×5 (00:17→23:23)
[2020-07-15] MEDS: NOREPINEPHRINE 8 MG/D5W 250 ML 8 MG/250 ML BAG 37.5 MG IV CONT (00:30)
[2020-07-15 00:45] LABS: Glucose Point of Care 264 (65-105)
[2020-07-15 04:33] LABS: Alveolar/Arterial O2 Gradient 290.1 mmHg; Base Excess ABG -1.4 mEq/l (+/-2.0); Carboxyhemoglobin 0.3 % THb (0-2.0); Fractional Inspired Oxygen 60 %; HCO3 ABG 26.3 mEq/l (22.0-26.0); Methemoglobin ABG 0.5 %THb (0-1.5); Modified Allen's Test Unable to perform; Oxygen Saturation ABG 93.1 % (95.0-100.0); Oxyhemoglobin 93.1 % THb (90.0-100.0); PCO2 ABG 57.1 mmHg (35.0-45.0); PO2 ABG 74.9 mmHg (80.0-100.0); PO2 FiO2 Ratio Arterial Blood 1.25 %; Reduced Hemoglobin 6.1 %THb (0-5.0); Site Drawn LEFT RADIAL; Total Hemoglobin 13.7 g/dL (12.0-18.0); pH ABG 7.281 (7.350-7.450)
[2020-07-15 04:34] LABS: Arterial Blood Gas Vent Mode CMV; Arterial Blood Gas Ventilator rate 30 /MIN; Device VENTILATOR
[2020-07-15 04:35] LABS: Arterial Blood Gas PEEP 17 cmH2O; Arterial Blood Gas Tidal Volume 400 ml
[2020-07-15 05:07] LABS: Basophils Absolute Auto 0.1 K/mm3 (0.0-0.1); Basophils Percent Auto 0.5 % (0.2-1.2); Eosinophils Absolute Auto 0.2 K/mm3 (0-0.3); Hematocrit 40.7 % (42.0-52.0); Hemoglobin 12.6 g/dL (14.0-18.0); Immature Granulocyte Absolute 0.79 K/mm3 (0.00-0.031); Immature Granulocyte Percent A 3.9 % (0-0.5); Immature Platelet Fraction Pct 15.2 % (0.9-11.2); Lymphocytes Absolute Auto 1.73 K/mm3 (0.9-3.2); Lymphocytes Percent Auto 8.6 % (18.3-44.2); Mean Corpuscular Hemoglobin 27.9 pg (26-34); Mean Platelet Volume 13.3 fl (7.4-10.4); Monocytes Absolute Auto 1.1 K/mm3 (0.1-0.6); Monocytes Percent Auto 5.6 % (2.6-8.5); Neutrophils Absolute Auto 16.1 K/mm3 (1.3-6.7); Neutrophils Percent Auto 80.4 % (45.5-73.1); Platelet Count Result 187 k/mm3 (150-375); Red Blood Count 4.52 M/mm3 (4.6-6.20); Red Cell Distribution Width 14.3 % (11.5-14.5)
[2020-07-15 05:21] LABS: D Dimer 1.12 ug/mL (<0.48)
[2020-07-15 05:45] LABS: Alanine Aminotransferase 21 U/L (4-50); Albumin Level 2.8 g/dL (3.5-5.1); Alkaline Phosphatase 97 U/L (38-126); Anion Gap 0 mmol/L (8-16); Aspartate Amino Transferase 31 U/L (17-59); Bilirubin,Total 0.4 mg/dL (0.2-1.3); Blood Urea Nitrogen 23 mg/dL (9-20); CRP 23.9 mg/dL (<1.0); Calcium 8.7 mg/dL (8.4-10.2); Carbon Dioxide 33 mmol/L (22-30); Chloride 103 mmol/L (98-107); Estimated CRCL calculation 83 ml/min; Estimated Glomerular Filt Rate > 60; Glucose 218 mg/dL (75-110); Lactate Dehydrogenase 665 U/L (313-618); Phosphorus 3.7 mg/dL (2.5-4.5); Potassium 4.1 mmol/L (3.4-5.0); Sodium 136 mmol/L (137-145)
[2020-07-15] MEDS: CISATRACURIUM BESYLATE 200 MG in DEXTROSE 5% 80 ML 7 ML IV CONT ×2 (06:11→19:31)
[2020-07-15] MEDS: NOREPINEPHRINE 8 MG/D5W 250 ML 8 MG/250 ML BAG 41.25 MG IV CONT (06:13)
[2020-07-15] MEDS: EPOPROSTENOL SODIUM 0.5 MG VIAL 1 MG INHALATION ×2 (06:16→23:35)
[2020-07-15 06:21] LABS: Glucose Point of Care 216 (65-105)
[2020-07-15] MEDS: LACTATED RINGERS 1,000 ML 999 ML IV CONT ×2 (08:07→09:48)
[2020-07-15] MEDS: APIXABAN 5 MG TABLET PO ×2 (08:08→21:32)
[2020-07-15] MEDS: ATORVASTATIN 20 MG TABLET BY MOUTH (08:08)
[2020-07-15] MEDS: CYANOCOBALAMIN 1,000 MCG TABLET 1000 MCG PO (08:08)
[2020-07-15] MEDS: PANTOPRAZOLE SODIUM IV 40 MG VIAL IV PUSH (08:09)
[2020-07-15] MEDS: LATANOPROST 0.005% OP SOLN 2.5 ML BTL 1 DROP EACH EYE (08:09)
[2020-07-15 08:45] LABS: Lactic Acid Reflex 6.1 mmol/L (0.7-2.1)
[2020-07-15 08:51] LABS: Alveolar/Arterial O2 Gradient 319.6 mmHg; Base Excess ABG -3.3 mEq/l (+/-2.0); Fractional Inspired Oxygen 65 %; HCO3 ABG 25.5 mEq/l (22.0-26.0); Oxygen Saturation ABG 91.9 % (95.0-100.0); Oxyhemoglobin 92.2 % THb (90.0-100.0); PO2 ABG 75.1 mmHg (80.0-100.0); PO2 FiO2 Ratio Arterial Blood 1.16 %; Total Hemoglobin 13.1 g/dL (12.0-18.0)
[2020-07-15 08:53] LABS: Device VENTILATOR; Modified Allen's Test Pass; PCO2 ABG 63.2 mmHg (35.0-45.0); Site Drawn RIGHT RADIAL; pH ABG 7.223 (7.350-7.450)
[2020-07-15 08:56] LABS: Arterial Blood Gas Ventilator rate 30 /MIN
[2020-07-15 08:57] LABS: Arterial Blood Gas PEEP 17 cmH2O; Arterial Blood Gas Tidal Volume 400 ml; Arterial Blood Gas Vent Mode CMV
[2020-07-15] MEDS: INSULIN GLARGINE (*BKC) 100 UNITS/ML 25 UNITS SUB-Q (09:48)
[2020-07-15] MEDS: NOREPINEPHRINE 8 MG/D5W 250 ML 8 MG/250 ML BAG 67.5 MG IV CONT (10:29)
--- NOTE | 2020-07-15 10:44 | PM.IMPN ---
Progress Note: A&P Assessment and Plan (1) Pneumonia due to COVID-19 virus: Code(s): U07.1 - COVID-19; J12.82 - Pneumonia due to coronavirus disease 2019 Status: Acute Assessment and Plan: Complicated with ARDS and septic shock and acute hypoxemic respiratory failure With management by pulmonology Continue steroid remdisever until 07/15/2020. (2) Acute and chronic respiratory failure with hypoxia: Code(s): J96.21 - Acute and chronic respiratory failure with hypoxia Status: Acute Assessment and Plan: Secondary to COVID-19 pneumonia management as above (3) Poor diet: Code(s): E63.9 - Nutritional deficiency, unspecified Status: Acute Assessment and Plan: Tube feeding. (4) Pulmonary embolism: Code(s): I26.99 - Other pulmonary embolism without acute cor pulmonale Status: Acute Assessment and Plan: Post COVID. Venous Dopplers negative for DVT. Echo showed LV systolic function normal at 60 to 65%, mild LVH, diastolic dysfunction grade 1. Start Eliquis 10 mg q.12 hours for 7 days then decrease to 5 mg (07/12/2020) q.12 hours for 3-6 months and have him follow-up with primary care provider for further monitoring. Continue monitoring. (5) Abdominal distension: Code(s): R14.0 - Abdominal distension (gaseous) Status: Acute Assessment and Plan: Patient with some lower abdominal distension, could be constipation versus urinary retention. Nontender. KUB showed normal bowel gas pattern. Resolved. (6) Congestive heart failure: Code(s): I50.9 - Heart failure, unspecified Status: Chronic Assessment and Plan: Appears to be euvolemic at this time. (7) HLD (hyperlipidemia): Code(s): E78.5 - Hyperlipidemia, unspecified Status: Acute Assessment and Plan: Monitor (8) Type 2 diabetes mellitus without complications: Code(s): E11.9 - Type 2 diabetes mellitus without complications Status: Acute Assessment and Plan: Insulin sliding scale. (9) Hypertensive heart disease without congestive heart failure: Code(s): I11.9 - Hypertensive heart disease without heart failure Status: Acute Assessment and Plan: Hold blood pressure medication because of hypotension. (10) BPH (benign prostatic hyperplasia): Code(s): N40.0 - Benign prostatic hyperplasia without lower urinary tract symptoms Status: Chronic Assessment and Plan: Monitor. (11) Glaucoma: Code(s): H40.9 - Unspecified glaucoma Status: Chronic Assessment and Plan: Continue with his eyedrops. (12) Depression: Code(s): F32.9 - Major depressive disorder, single episode, unspecified Status: Acute Assessment and Plan: Monitor Subjective Date/time seen: 07/15/20 10:44 Interval history: Patient was admitted to the hospital with shortness of breath was found to have COVID-19 patient received remdisever plasma dexamethasone starting on 07/05/20 patient condition continued to worsen on 07/12/2020 patient became more hypoxic required intubation chest x-ray concerning for ARDS and COVID-19 pneumonia patient also developed hypotension most likely septic shock secondary to COVID-19 pneumonia started on pressors patient continued to be hypoxic pronining position was started also patient has leukocytosis concern for infection patient was treated with IV
[2020-07-15 11:00] LABS: Alanine Aminotransferase 16 U/L (4-50); Albumin Level 2.1 g/dL (3.5-5.1); Alkaline Phosphatase 76 U/L (38-126); Anion Gap 0 mmol/L (8-16); Aspartate Amino Transferase 32 U/L (17-59); Bilirubin,Total 0.3 mg/dL (0.2-1.3); Blood Urea Nitrogen 20 mg/dL (9-20); Calcium 7.9 mg/dL (8.4-10.2); Carbon Dioxide 27 mmol/L (22-30); Chloride 103 mmol/L (98-107); Estimated CRCL calculation 83 ml/min; Estimated Glomerular Filt Rate > 60; Glucose 224 mg/dL (75-110); Sodium 130 mmol/L (137-145)
[2020-07-15] MEDS: REMDESIVIR 100 MG/NS 250 ML 100 MG/250 ML BAG 250 MG IVPB (11:00)
[2020-07-15 11:26] LABS: Reflex Lactic Acid Yes or No Add Lactic
[2020-07-15 12:22] LABS: Glucose Point of Care 236 (65-105)
[2020-07-15] MEDS: NOREPINEPHRINE 8 MG/D5W 250 ML 8 MG/250 ML BAG 93.75 MG IV CONT (13:26)
--- NOTE | 2020-07-15 14:05 | WPDINTPN ---
Progress Note: A&P Assessment and Plan (1) Acute respiratory failure with hypoxia: Code(s): J96.01 - Acute respiratory failure with hypoxia Status: Acute Assessment and Plan: Acute hypoxic respiratory failure likely related to COVID-19 pneumonia, ARDS physiology -chest x-ray reviewed and shows persistent bilateral infiltrates -patient intubated 07/12 -continue low tidal volume strategy, currently FiO2 is at 80%, PEEP to 15 - RR increased to 32 after review of ABG -fentanyl and Versed for sedation -patient dyssynchronous with the ventilator, continue Nimbex for neuromuscular blockade -continue Flolan -patient on ceftriaxone and azithromycin which was initiated on 07/10/2020 -patient was placed in prone position overnight and will be continued daily -patient has history of neck surgery and neck is to firm to allow placing his face on the side. Patient is prone with head gear board from OR to protect his face and nose (2) Pulmonary embolism: Code(s): I26.99 - Other pulmonary embolism without acute cor pulmonale Status: Acute Assessment and Plan: Patient presented with increasing shortness of breath, CTA chest showed bilateral pulmonary emboli -continue Eliquis (3) Pneumonia due to COVID-19 virus: Code(s): U07.1 - COVID-19; J12.82 - Pneumonia due to coronavirus disease 2019 Status: Acute Assessment and Plan: COVID-19 positive -continue droplet, airborne and contact isolation/precautions -will follow inflammatory markers -patient currently on dexamethasone, -patient has received Remdesivir x5 doses, pulmonology was to continue Remdesivir for another 5 days through 07/15 (4) Type 2 diabetes mellitus without complications: Code(s): E11.9 - Type 2 diabetes mellitus without complications Status: Acute Assessment and Plan: Continue high-dose sliding scale and Accu-Cheks Increase Lantus (5) DVT prophylaxis: Code(s): Z29.9 - Encounter for prophylactic measures, unspecified Status: Acute Assessment and Plan: Continue Eliquis (6) Dietary counseling and surveillance: Code(s): Z71.3 - Dietary counseling and surveillance Status: Acute Assessment and Plan: Stress ulcer prophylaxis: Will add Protonix Tube feeds have been on and off due to high residuals. Add Reglan (7) Electrolyte abnormality: Code(s): E87.8 - Other disorders of electrolyte and fluid balance, not elsewhere classified Status: Acute (8) Septic shock: Code(s): A41.9 - Sepsis, unspecified organism; R65.21 - Severe sepsis with septic shock Status: Acute Assessment and Plan: -blood, sputum and urine cultures have been taken -lactic acid was greater than 6 and has decreased to 2 after crystalloid resuscitation -antibiotics have been broadened to vancomycin, cefepime and Levaquin. Ceftriaxone and azithromycin have been discontinued. Additional Plan Code status: Full code Critical care time spent: 35 minutes Due to a high probability of clinically significant, life threatening deterioration, the patient required my highest level of preparedness to intervene emergently and I personally spent this critical care time directly and personally managing the patient. This critical care time included obtaining a history; examining the patient; pulse oximetry; ordering and review of studies; arranging urgent treatment with development of a management plan; evaluation of patient's response to treatment; frequent reassessment; and discussions with other providers. It was exclusive of separately billable procedures and treating other patients and teaching time. Please see Assessment and Plan section and the rest of the note for further information on patient assessment and treatment Subjective Date/time seen: 07/15/20 14:05 Interval history: The patient has decompensated since early this morning and is now in septic shock. He is received adequate cryst
[2020-07-15 14:14] LABS: Alveolar/Arterial O2 Gradient 434.6 mmHg; Base Excess ABG -2.3 mEq/l (+/-2.0); Fractional Inspired Oxygen 80 %; Oxygen Content ABG 17.4 %vol (16.0-22.0); Oxygen Saturation ABG 94.2 % (95.0-100.0); Oxyhemoglobin 94.2 % THb (90.0-100.0); PCO2 ABG 53.7 mmHg (35.0-45.0); PO2 ABG 79.4 mmHg (80.0-100.0); PO2 FiO2 Ratio Arterial Blood 0.99 %; Total Hemoglobin 13.1 g/dL (12.0-18.0)
[2020-07-15 14:16] LABS: pH ABG 7.286 (7.350-7.450)
[2020-07-15 14:17] LABS: Arterial Blood Gas Ventilator rate 36 /MIN; Device VENTILATOR; Modified Allen's Test Pass; Site Drawn RIGHT RADIAL
[2020-07-15 14:18] LABS: Arterial Blood Gas PEEP 17 cmH2O; Arterial Blood Gas Tidal Volume 420 ml; Arterial Blood Gas Vent Mode CMV
[2020-07-15] MEDS: CENTRAL LINE FLUSH 10 ML IV PUSH ×2 (16:33→21:34)
[2020-07-15] MEDS: FENTANYL 2,500MCG/NS250ML(*CRX 2,500 MCG/250 ML BAG 10 MCG IV CONT (16:34)
[2020-07-15] MEDS: NOREPINEPHRINE 8 MG/D5W 250 ML 8 MG/250 ML BAG 78.75 MG IV CONT (17:03)
[2020-07-15 18:28] LABS: Glucose Point of Care 263 (65-105)
[2020-07-15] MEDS: NOREPINEPHRINE 8 MG/D5W 250 ML 8 MG/250 ML BAG 97.5 MG IV CONT (19:38)
--- NOTE | 2020-07-15 21:08 | WPDPROCEDUR ---
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
[2020-07-15] MEDS: VASOPRESSIN INJ 100 UNITS in DEXTROSE 5% 95 ML IV CONT (21:30)
[2020-07-15] MEDS: DOCUSATE SODIUM 100 MG CAPSULE PO (21:32)
[2020-07-15] MEDS: NOREPINEPHRINE BITARTRATE 16 MG in DEXTROSE 5% IN WATER 234 ML 51.56 MG IV CONT (21:40)
[2020-07-15 22:54] LABS: Lactic Acid Reflex 2.2 mmol/L (0.7-2.1)
[2020-07-15 23:58] LABS: Glucose Point of Care 206 (65-105)
[2020-07-16] VITALS (22 sets, daily range): BP systolic 76–150; BP diastolic 45–73; PULSE 0–171; RESP 0–36; TEMP 35.8–37.1; O2SAT 92–99
[2020-07-16 01:35] LABS: Reflex Lactic Acid Yes or No Add Lactic
[2020-07-16] MEDS: NOREPINEPHRINE BITARTRATE 16 MG in DEXTROSE 5% IN WATER 234 ML 45 MG IV CONT (02:19)
[2020-07-16 04:50] LABS: Basophils Absolute Auto 0.1 K/mm3 (0.0-0.1); Basophils Percent Auto 0.7 % (0.2-1.2); Eosinophils Absolute Auto 0.3 K/mm3 (0-0.3); Eosinophils Percent Auto 1.3 % (0-4.4); Hematocrit 33.5 % (42.0-52.0); Hemoglobin 10.5 g/dL (14.0-18.0); Immature Granulocyte Absolute 1.32 K/mm3 (0.00-0.031); Immature Granulocyte Percent A 6.9 % (0-0.5); Immature Platelet Fraction Pct 17.5 % (0.9-11.2); Lymphocytes Absolute Auto 2.03 K/mm3 (0.9-3.2); Lymphocytes Percent Auto 10.6 % (18.3-44.2); Mean Corpuscular HGB Conc 31.3 g/dl (32-36); Mean Corpuscular Hemoglobin 28.7 pg (26-34); Mean Corpuscular Volume 91.5 fl (80-100); Mean Platelet Volume 13.3 fl (7.4-10.4); Monocytes Absolute Auto 0.9 K/mm3 (0.1-0.6); Monocytes Percent Auto 4.6 % (2.6-8.5); Neutrophils Absolute Auto 14.6 K/mm3 (1.3-6.7); Neutrophils Percent Auto 75.9 % (45.5-73.1); Nucleated Red Blood Cells Perc 0.1 % (0.0-0.2); Platelet Count Result 120 k/mm3 (150-375); Red Blood Count 3.66 M/mm3 (4.6-6.20); Red Cell Distribution Width 14.3 % (11.5-14.5); White Blood Count 19.2 K/mm3 (4.5-10.0)
[2020-07-16] MEDS: EPOPROSTENOL SODIUM 0.5 MG VIAL 1 MG INHALATION (05:48)
[2020-07-16] MEDS: METOCLOPRAMIDE HCL INJ 10 MG/2 ML VIAL 5 MG IV PUSH (06:14)
[2020-07-16] MEDS: CENTRAL LINE FLUSH 10 ML IV PUSH (06:16)
[2020-07-16 06:20] LABS: Alveolar/Arterial O2 Gradient 349.2 mmHg; Carboxyhemoglobin 0.3 % THb (0-2.0); Fractional Inspired Oxygen 70 %; HCO3 ABG 22.9 mEq/l (22.0-26.0); Methemoglobin ABG 0.4 %THb (0-1.5); Oxygen Content ABG 16.8 %vol (16.0-22.0); Oxygen Saturation ABG 96.6 % (95.0-100.0); Oxyhemoglobin 95.8 % THb (90.0-100.0); PO2 ABG 97.2 mmHg (80.0-100.0); PO2 FiO2 Ratio Arterial Blood 1.39 %; Reduced Hemoglobin 3.5 %THb (0-5.0); Total Hemoglobin 12.4 g/dL (12.0-18.0)
[2020-07-16 06:21] LABS: Device VENTILATOR; Site Drawn ARTLINE; pH ABG 7.287 (7.350-7.450)
[2020-07-16 06:22] LABS: Arterial Blood Gas PEEP 17 cmH2O; Arterial Blood Gas Vent Mode CMV; Arterial Blood Gas Ventilator rate 34 /MIN
[2020-07-16 06:23] LABS: Arterial Blood Gas Tidal Volume 420 ml
[2020-07-16] MEDS: INSULIN ASPART (*BKC) 100 UNITS/ML SUB-Q ×2 (06:46→13:33)
[2020-07-16] MEDS: NOREPINEPHRINE BITARTRATE 16 MG in DEXTROSE 5% IN WATER 234 ML 56.25 MG IV CONT ×2 (06:49→11:27)
[2020-07-16] MEDS: CISATRACURIUM BESYLATE 200 MG in DEXTROSE 5% 80 ML 7 ML IV CONT (06:51)
[2020-07-16 07:06] LABS: Alanine Aminotransferase 16 U/L (4-50); Albumin Level 2.1 g/dL (3.5-5.1); Alkaline Phosphatase 79 U/L (38-126); Anion Gap -1 mmol/L (8-16); Aspartate Amino Transferase 23 U/L (17-59); Bilirubin,Total 0.5 mg/dL (0.2-1.3); Blood Urea Nitrogen 20 mg/dL (9-20); Calcium 7.1 mg/dL (8.4-10.2); Carbon Dioxide 27 mmol/L (22-30); Chloride 91 mmol/L (98-107); Estimated CRCL calculation 86 ml/min; Estimated Glomerular Filt Rate > 60; Glucose 532 mg/dL (75-110); Magnesium 1.5 mg/dL (1.6-2.3); Phosphorus 3.3 mg/dL (2.5-4.5); Potassium 3.6 mmol/L (3.4-5.0)
[2020-07-16 07:09] LABS: Glucose Point of Care 221 (65-105)
[2020-07-16 07:35] LABS: Anion Gap 0 mmol/L (8-16); Blood Urea Nitrogen 24 mg/dL (9-20); Calcium 7.8 mg/dL (8.4-10.2); Carbon Dioxide 25 mmol/L (22-30); Chloride 101 mmol/L (98-107); Estimated CRCL calculation 86 ml/min; Estimated Glomerular Filt Rate > 60; Glucose 210 mg/dL (75-110); Potassium 4.1 mmol/L (3.4-5.0); Sodium 126 mmol/L (137-145)
[2020-07-16] MEDS: ATORVASTATIN 20 MG TABLET BY MOUTH (09:32)
[2020-07-16] MEDS: APIXABAN 5 MG TABLET PO (09:32)
[2020-07-16] MEDS: CYANOCOBALAMIN 1,000 MCG TABLET 1000 MCG PO (09:32)
[2020-07-16] MEDS: MAGNESIUM SULFATE 3GM/D5W100ML 3 GM/100 ML BAG IVPB (09:32)
[2020-07-16] MEDS: PANTOPRAZOLE SODIUM IV 40 MG VIAL IV PUSH (09:33)
[2020-07-16] MEDS: INSULIN GLARGINE (*BKC) 100 UNITS/ML 25 UNITS SUB-Q (09:33)
[2020-07-16] MEDS: LATANOPROST 0.005% OP SOLN 2.5 ML BTL 1 DROP EACH EYE (09:33)
--- NOTE | 2020-07-16 12:01 | WPDINTPN ---
Progress Note: A&P Assessment and Plan (1) Acute respiratory failure with hypoxia: Code(s): J96.01 - Acute respiratory failure with hypoxia Status: Acute Assessment and Plan: Acute hypoxic respiratory failure likely related to COVID-19 pneumonia, ARDS physiology -chest x-ray reviewed and shows persistent bilateral infiltrates -patient intubated 07/12 -continue low tidal volume strategy, currently FiO2 is at 80%, PEEP to 15 - RR increased to 32 after review of ABG -fentanyl and Versed for sedation -patient dyssynchronous with the ventilator, continue Nimbex for neuromuscular blockade -continue Flolan -patient on ceftriaxone and azithromycin which was initiated on 07/10/2020 -patient was placed in prone position overnight and will be continued daily -patient has history of neck surgery and neck is to firm to allow placing his face on the side. Patient is prone with head gear board from OR to protect his face and nose (2) Pulmonary embolism: Code(s): I26.99 - Other pulmonary embolism without acute cor pulmonale Status: Acute Assessment and Plan: Patient presented with increasing shortness of breath, CTA chest showed bilateral pulmonary emboli -continue Eliquis (3) Pneumonia due to COVID-19 virus: Code(s): U07.1 - COVID-19; J12.82 - Pneumonia due to coronavirus disease 2019 Status: Acute Assessment and Plan: COVID-19 positive -continue droplet, airborne and contact isolation/precautions -will follow inflammatory markers -patient currently on dexamethasone, -patient has received Remdesivir x5 doses, pulmonology was to continue Remdesivir for another 5 days through 07/15 (4) Type 2 diabetes mellitus without complications: Code(s): E11.9 - Type 2 diabetes mellitus without complications Status: Acute Assessment and Plan: Continue high-dose sliding scale and Accu-Cheks Increase Lantus (5) DVT prophylaxis: Code(s): Z29.9 - Encounter for prophylactic measures, unspecified Status: Acute Assessment and Plan: Continue Eliquis (6) Dietary counseling and surveillance: Code(s): Z71.3 - Dietary counseling and surveillance Status: Acute Assessment and Plan: Stress ulcer prophylaxis: Will add Protonix Tube feeds have been on and off due to high residuals. Add Reglan (7) Electrolyte abnormality: Code(s): E87.8 - Other disorders of electrolyte and fluid balance, not elsewhere classified Status: Acute (8) Septic shock: Code(s): A41.9 - Sepsis, unspecified organism; R65.21 - Severe sepsis with septic shock Status: Acute Assessment and Plan: The patient is shock is getting worse he is currently on 3 vasopressors with very labile blood pressure. Hydrocortisone has been added at 100 mg IV q.8 hours. -blood, sputum and urine cultures have been taken -lactic acid was greater than 6 and has decreased to 2 after crystalloid resuscitation -antibiotics have been broadened to vancomycin, cefepime and Levaquin. Ceftriaxone and azithromycin have been discontinued. (9) Shock: Code(s): R57.9 - Shock, unspecified Status: Acute Assessment and Plan: Septic shock is most likely. Acute pulmonary embolism is unlikely given that he has been on full anticoagulation for many days. -Hydrocortisone has been added - he does not appear to be hypovolemic and was fluid resuscitated yesterday and with caution any further fluid boluses given his ARDS. - troponin was normal and hence ruling out myocardial infarction - Flolan was discontinued and his sedation and paralytics have also been held. Additional Plan Code status: DNR. Comfort measures should be considered severe profound shock. Critical care time spent: 35 minutes Due to a high probability of clinically significant, life threatening deterioration, the patient required my highest level of preparedness to intervene emergently and I personally spent th
[2020-07-16 12:05] LABS: Glucose Point of Care 205 (65-105)
[2020-07-16 12:05] LABS: Glucose Point of Care 204 (65-105)
[2020-07-16 12:31] LABS: Anion Gap -3 mmol/L (8-16); Blood Urea Nitrogen 22 mg/dL (9-20); Calcium 7.7 mg/dL (8.4-10.2); Carbon Dioxide 32 mmol/L (22-30); Chloride 96 mmol/L (98-107); Estimated CRCL calculation 77 ml/min; Estimated Glomerular Filt Rate > 60; Glucose 272 mg/dL (75-110); Potassium 3.8 mmol/L (3.4-5.0); Sodium 125 mmol/L (137-145)
[2020-07-16] MEDS: SODIUM BICARBONATE 8.4% 50 MEQ/50 ML SYRINGE IV PUSH (13:32)
[2020-07-16] MEDS: HYDROCORTISONE SODIUM SUCCINATE 100 MG/2 ML VIAL IV PUSH (13:33)
--- NOTE | 2020-07-16 15:04 | PM.IMPN ---
Progress Note: A&P Assessment and Plan (1) Pneumonia due to COVID-19 virus: Code(s): U07.1 - COVID-19; J12.82 - Pneumonia due to coronavirus disease 2019 Status: Acute Assessment and Plan: Patient presented after being found to be COVID positive at home after a swab on 06/30/2020 after having 2 days the symptoms. He had worsening shortness of breath and fatigue and decided to come for further evaluation. Symptoms began on 06/28/2020 so we will start IV Remdesivir on 07/05/2020 (Day #5/5). Rechecked a chest x-ray 07/07/2020 which showed no acute change to COVID-19 pneumonia Since he is on day 7, without much respiratory change, still requiring AirVo with nonrebreather mask will administer IV Plasma (Day #1, if still no improvement tomorrow, consider doing plasma a second day.) Continue trying to wean him down as tolerated. Continue monitoring. Continue on Decadron and Remdesivir 07/16/20 15:04 Patient is 69-year-old male with COVID last night patient was hypotension and encephalopathic electrode cleaning machine operator was called and evaluate patient was started on IVF and transferred patient to IMU, today patient states is feeling little better not a short of breath and denies any fever or chills, patient was seen by pulmonology recommended to continue dexamethasone and extended Remdesivir for another 5 days, room server is also concern about patient's p.o. intake specially nutrition status recommending if there is no improvement may place Dobbhoff and start the G-tube feeds, will have a speech pathologist as well as dietitian evaluate the patient further recommendation. Will continue to monitor and further recommendation to follow. 07/12 today patient is quite hypoxic he is on high-flow oxygen and saturation is not improved discussed with solid state tester was evaluated the patient and patient was intubated and transferred to ICU. 07/16 patient was intubated on 07/12 has been treated with dexamethasone and remdesivir a total of 10 days, however patient's symptoms not improved and patient is in severe shock is on 3 pressors and hydrocortisone was added as well as on broad spectrum antibiotics vancomycin, Levaquin, and cefepime, patient is now DNR, family is considering to withdraw the care, will continue to monitor and further recommendation to follow (2) Acute and chronic respiratory failure with hypoxia: Code(s): J96.21 - Acute and chronic respiratory failure with hypoxia Status: Acute Assessment and Plan: Secondary to COVID pneumonia. Patient is on HFNC with nonrebreather at this time and appears comfortable, 96% with flow rate of 50 and FIO2 at 70. Continue with COVID-19 treatment with IV dexamethasone and Remdesivir, breathing treatments. Wean oxygen as tolerated. (3) Poor diet: Code(s): E63.9 - Nutritional deficiency, unspecified Status: Acute Assessment and Plan: Patient has not been eating much, which is consistent with COVID and lack of appetite. I have talked to dietitian about different supplementation I educated the patient that he needs to at least drink the Glucerna he is on now to help with his calorie and nutrition Giving plasma today to see if it helps with improvement of symptoms, will continue to monitor his diet and ensure he does not need any PPN if he continues to not eat. Continue monitoring. Appreciate dietitian input. (4) Pulmonary embolism: Code(s): I26.99 - Other pulmonary embolism without acute cor pulmonale Status: Acute Assessment and Plan: Post COVID. Venous Dopplers negative for DVT. Echo showed LV systolic function normal at 60 to 65%, mild LVH, diastolic dysfunction grade 1. Start Eliquis 10 mg q.12 hours for 7 days then decrease to 5 mg (07/12/2020) q.12 hours for 3-6 months and have him follow-up with primary care provider
--- NOTE | 2020-07-16 15:25 | PM.DDS ---
Discharge Sum: Prov Provider Primary care physician: Bucky Hua MD Admitting provider: Silver Blair MD Consults: 07/10/20 Consult to Dietitian Routine Reason for Consult:: COVID-19 07/11/20 Consult to Dietitian Routine Reason for Consult:: on TPN may need Doddhoff and tube feeding. 07/11/20 09:05 Consult to Physician Routine Comment: CALLED MD WITH CONSULT INFORMATION Consulting Provider: Svetlana Calles call centre supervisor/MD group to consult: Upper Cutter Machine Reason for consultation: woresning covid Has provider been notified: Yes Discharge Sum: Summary Date and Time Date of admission: 07/03/20 15:35 Date of : 07/16/20 Time of : 15:19 Summary Details: Patient is 69-year-old male with COVID last night patient was hypotension and encephalopathic surveyor oil well directional was called and evaluate patient was started on IVF and transferred patient to IMU, today patient states is feeling little better not a short of breath and denies any fever or chills, patient was seen by pulmonology recommended to continue dexamethasone and extended Remdesivir for another 5 days, carpentry teacher is also concern about patient's p.o. intake specially nutrition status recommending if there is no improvement may place Dobbhoff and start the G-tube feeds, will have a speech pathologist as well as dietitian evaluate the patient further recommendation. Will continue to monitor and further recommendation to follow. 07/12 today patient is quite hypoxic he is on high-flow oxygen and saturation is not improved discussed with candle maker was evaluated the patient and patient was intubated and transferred to ICU. 07/16 patient was intubated on 07/12 has been treated with dexamethasone and remdesivir a total of 10 days, however patient's symptoms not improved and patient is in severe shock is on 3 pressors and hydrocortisone was added as well as on broad spectrum antibiotics vancomycin, Levaquin, and cefepime, patient is now DNR, family is considering to withdraw the care, will continue to monitor and further recommendation to follow Family withdrew care and patient at 15:19 Additional Data Confirmation of as documented by pronouncing clinician: no pulse, no respirations, no heart sounds and pupils fixed and dilated Attending/PCP notified?: Yes Attending physician: Lydia Calix PA-C Was code activated?: No Autopsy requested?: No computer forensic examiner notified?: Yes Organ bank notified?: Yes Advance directives: No Hospice patient?: No
[2020-07-21 14:20] LABS: Sodium 117 mmol/L (137-145)
== END 2020-07-16 15:19 | disposition expired | DRG 208 ==
LOC: ANHED 15:35 → ANHIMU 17:05 → ANHICU 07-12 15:32
PROVIDERS: Family Medicine; Internal Medicine; Internal Medicine Critical Care Medicine; Nurse Practitioner; Admitting Provider Family Medicine; Emergency Provider Emergency Medicine; PCP Family Medicine; Visit Provider Physician Assistant
DX: U07.1 COVID-19 (principal); J12.82 Pneumonia due to coronavirus disease 2019; I26.99 Other pulmonary embolism without acute cor pulmonale; A41.9 Sepsis, unspecified organism; R65.21 Severe sepsis with septic shock; J80 Acute respiratory distress syndrome; I50.32 Chronic diastolic (congestive) heart failure; E87.0 Hyperosmolality and hypernatremia; G93.40 Encephalopathy, unspecified; I11.0 Hypertensive heart disease with heart failure; E86.1 Hypovolemia; E87.8 Other disorders of electrolyte and fluid balance, not elsewhere classified; E63.9 Nutritional deficiency, unspecified; Z66 Do not resuscitate; I25.10 Atherosclerotic heart disease of native coronary artery without angina pectoris; I25.2 Old myocardial infarction; E78.5 Hyperlipidemia, unspecified; E11.51 Type 2 diabetes mellitus with diabetic peripheral angiopathy without gangrene; M54.5 Low back pain; H40.1130 Primary open-angle glaucoma, bilateral, stage unspecified; N40.0 Benign prostatic hyperplasia without lower urinary tract symptoms; F41.9 Anxiety disorder, unspecified; F32.9 Major depressive disorder, single episode, unspecified; R14.0 Abdominal distension (gaseous); Z87.891 Personal history of nicotine dependence; Z98.1 Arthrodesis status; Z79.82 Long term (current) use of aspirin; Z79.84 Long term (current) use of oral hypoglycemic drugs
CPT/HCPCS: 31500; 36415; 36430; 36569; 36600; 71045; 71275; 74018; 80048; 80053; 82375; 82533; 82565; 82728; 82805; 82948; 83036; 83050; 83605; 83615; 83735; 84100; 84132; 84443; 84460; 84484; 85025; 85027; 85055; 85380; 85610; 85730; 86140; 86900; 86901; 87040; 87086; 93005; 93306; 93970; 94002; 94003; 94640; 94660; 96365; 97161; 97165; 99291; A9270; C1751; C9113; J0456; J0692; J0696; J1100; J1265; J1644; J1720; J1815; J1956; J2250; J2765; J3010; J3370; J3475; J7030; J7040; J7050; J7060; J7120; P9059; Q9967